=== PATIENT | male | born 1955 | race Caucasian/White ===

== ENCOUNTER 2023-02-19 11:05 | Outpatient (OUT) | payer MEDICARE, SELFPAY ==
--- NOTE | 2023-02-19 11:17 | US_ITS ---
The [address] [address] Patient Name: DHEERAJ STRONG MRN: [id number] date: 1955 Sex: M Assigned Patient Location: US Current Patient Location: Accession/Order Number: [id number] Exam Date: 02/19/2023 11:20 Report Date: 02/20/2023 07:39 At the request of: GAVINO GALDAMEZ Procedure: US venous doppler LE RT EXAM: US venous doppler LE RT HISTORY: Chronic Embolism Of Right Femoral Vein COMPARISON: 05/27/2022. TECHNIQUE: Grayscale, color and Doppler FINDINGS: Region: Right leg Thrombus: Echogenic thrombus identified in the deep mid to distal femoral vein extending from the distal thigh to the popliteal vein. Thrombus identified in the superficial small saphenous vein Flow: Decreased flow corresponding to thrombus Augmentation: Normal proximal augmentation Compressibility: Decreased compressibility corresponding to thrombus US/US venous doppler LE RT IMPRESSION: Chronic nonocclusive thrombus in the deep mid to distal femoral vein and superficial small saphenous vein Electronically authenticated by: JAZMYN BARRY Date: 02/20/2023 07:39
== END 2023-02-19 11:06 | disposition home or self-care (01) ==
LOC: US 11:10
PROVIDERS: PCP Family Medicine; Visit Provider Family Medicine
DX: I82.511 Chronic embolism and thrombosis of right femoral vein (principal)
CPT/HCPCS: 93971

== ENCOUNTER 2024-09-19 09:59 | Emergency (ER) | payer MEDICARE, SELFPAY ==
--- OUTSIDE RECORDS SUMMARY | 2024-09-19 10:17 | XMS_ITS | Patient Health Record ---
Author Organization The [facility] in [place] Address [address] [place] [address] Care Team Providers Care Assistant Gm Of Content & Delivery Name Role Phone None, Unknown or Primary Care Provider Unavailab le Reason For Referral No Information Medications Medication SIG (Take, Route, Fr equency, Duration) Notes Start Date End Date Status Cialis 20 mg 1 tablet DAILY A ctive Mobic 7.5 mg 2 tablet DAILY A ctive Atenolol 25 mg 1 tablet DAILY Active Zetia 10 mg 1 tablet DAILY Ac tive Lasix 40 mg 1 tablet DAILY Ac tive Lisinopril 20 mg 1 tablet DAILY Active Omeprazole 20 mg 1 delayed release capsule DAILY 0 Active Plan Of Treatment No Information Insurance Providers Payer Name Payer Address Payer Phone Subscriber Number Group Number Insured Name Patient Relationship to Insured Coverage Start Date Coverage End Date [facility] [address] [facility] [place] FLOYD [id number] Dean Self - patient is the insured 4 Medical (General) History Surgical History Surgery Date(Month/Year) Surgical / procedural history repair LT shoulder, RT knee surgery History of hernia repair
--- OUTSIDE RECORDS SUMMARY | 2024-09-19 10:17 | XMS_ITS | Encounter Summary ---
Author Organization [facility] Address [address] [place] [address] Care Team Providers Care Supervisor Uranium Processing Name Role Phone Demetrius Zhou MD Primary Care Provider [phone] Demetrius Zhou MD Unavailable Reason for Visit * Reason Comments Med Refill Encounter Details Date Type Department Care Team (Late st Contact Info) Description 04/21/2023 [facility] [address] [place] [address] Demetrius Zhou MD [address] [place] [address] Acute embolism and thrombosis of right femoral vein (HCC); Acute thromboembolism of deep veins of proximal leg (HCC) Social History Tobacco Use Types Packs/Day Years Used Date Smoking Tobacco: Former Cigarettes 975 - 2004 Smokeless Tobacco: Never Alcohol Use Standard Drinks/Week Comments Never 0 (1 standard drink = 0.6 oz pur e alcohol) Humiliation, Afraid, Rape, and Kick questionnair e Answer Date Recorded Within the last year, have y ou been afraid of your partner or ex-partner? No 02/12/2023 Within the last year, have y ou been humiliated or emotionally abused in other ways by your partner or ex-partner? No Within the last year, have y ou been kicked, hit, slapped, or otherwise physically hurt by your partner or ex-partner? No 02/12/2023 Within the last year, have y ou been raped or forced to have any kind of sexual activity by your partner or ex-partner? No 02/12/2023 Social Connection and Isolat ion Panel [NHANES] Answer Date Recorded In a typical week, how many times do you talk on the phone with family, friends, or neighbors? More than three times a week 02/12/2023 How often do you get togethe r with friends or relatives? Twice a week 02/12/2023 Attends Bahai Services Not on file 02/12 Do you belong to any clubs o r organizations such as nondenominational groups, unions, fraternal or athletic groups, or school groups? Yes 02/12/2023 How often do you attend meet ings of the clubs or organizations you belong to? More than 4 times per year 02/12/2023 Are you , , di vorced, , never , or living with a partner? 02/12/2023 AUDIT-C Answer Date Recorded Q1: How often do you have a drink containing alcohol? Never 02/12/2023 Q2: How many drinks containi ng alcohol do you have on a typical day when you are drinking? Patient does not drink Q3: How often do you have si x or more drinks on one occasion? Never 02/12/2023 Overall Financial Resource Strain (CARDIA) Answe r Date Recorded How hard is it for you to pa y for the very basics like food, housing, medical care, and heating? Not very hard 02/12/2023 [facility] - Occupational Stress Questionnaire Answer Date Recorded Do you feel stress - tense, restless, nervous, or anxious, or unable to sleep at night because your mind is troubled all the time - these days? Not at all 02/12/2023 Exercise Vital Sign Answer Date Recorde d On average, how many days pe r week do you engage in moderate to strenuous exercise (like a brisk walk)? 7 days 02/12/2023 On average, how many minutes do you engage in exercise at this level? 30 min 02/12/2023 Hunger Vital Sign Answer Date Recorded Within the past 12 months, y ou worried that your food would run out before you got the money to buy more. Never true 02/12/19 24 Within the past 12 months, t he food you bought just didn't last and you didn't have money to get more. Never true 02/12/2023 PRAPARE - Transportation Answer Date Re corded In the past 12 months, has l ack of transportation kept you from medical appointments or from getting medications? No 09/2023 In the past 12 months, has l ack of transportation kept you from meetings, work, or from getting things needed for daily living? No 02/12/2023 Housing Stability Vital Sign Answer Elvin e Recorded In the last 12 months, was t here a time when you were not able to pay the mortgage or rent on time? No 02/12/2023 Number of Places Lived in the Last Year Not on f ile 02/12/2023 In the last 12 months, was t here a time when you did not have a steady place to sleep or slept in a half-way (including now)? No 02/12/2023 Sex and Gender Information Value Date Recorded Sex Assigned at Not on file Legal Sex Male 11:34 PM EDT Gender Identity Not on file Sexual Orientation Not on file documented as of this encounter Plan of Treatment Upcoming Encounters Date Type Department Care Team (Late st Contact Info) Description 10/20/2024 1:00 PM EDT Office Visit [facility] [address] [place] [address] Demetrius Zhou MD [address] [place] [address] 10/21/2025 1:30 PM EDT Office Visit [facility] [place] [facility] [address] [place] [address] Jr. Mahad Niño DO [address] [place], [place] [phone] documented as of this encounter Visit Diagnoses Diagnosis Acute embolism and thrombosis of right femoral vein (HCC) Acute thromboembolism of deep veins of proximal leg (HCC) Acute venous embolism and thrombosis of deep vessels of proximal lower extremity documented in this encounter Care Teams Supervisor Uranium Processing Relationship Specialty Start Date End Date Demetrius Zhou MD [address] [place] [phone] PCP - General Family Medicine 04/25/23 Demetrius Zhou MD [address] [place] [address] PCP - Dwayne KHAN 10/07/23 documented as of this encounter
--- OUTSIDE RECORDS SUMMARY | 2024-09-19 10:17 | XMS_ITS | Encounter Summary ---
Author Organization [facility] Address [address] [place] [address] Care Team Providers Care Burrer Operator Name Role Phone Demetrius Zhou MD Primary Care Provider [phone] Demetrius Zhou MD Unavailable Reason for Visit * Reason Comments Med Refill Encounter Details Date Type Department Care Team (Late st Contact Info) Description 08/01/2022 Refill [facility] [address] [place] [phone] Harley Reich PA [address] [place] [phone] Pre-op examination; Status post total knee replacement, right Social History Tobacco Use Types Packs/Day Years Used Date Smoking Tobacco: Former Cigarettes Smokeless Tobacco: Never Alcohol Use Standard Drinks/Week Comments Never 0 (1 standard drink = 0.6 oz pur e alcohol) Sex and Gender Information Value Date Recorded Sex Assigned at Not on file Legal Sex Male 11:34 PM EDT Gender Identity Not on file Sexual Orientation Not on file documented as of this encounter Miscellaneous Notes * Telephone Encounter - MYKE Rendon - 08/07/2022 1:51 PM EDT Pharmacy only could fill script for 3 days ( oarrs reviewed. Pt taking 1 tab every 8 hour now.. refill sent to pharmacy. * Telephone Encounter - MYKE Rendon - 08/04/2022 1:16 PM EDT Pt called Jessica- therapist. [facility]ed [facility].. rx sent, please take least effective dose for pain. documented in this encounter Plan of Treatment Upcoming Encounters Date Type Department Care Team (Late st Contact Info) Description 10/20/2024 1:00 PM EDT Office Visit [facility] [address] [place] [phone] Demetrius Zhou MD [address] [place] [address] 10/21/2025 1:30 PM EDT Office Visit [facility] [place] [facility] [address] [place] [phone] Jr. Mahad Niño, DO [address] [place] [address] documented as of this encounter Visit Diagnoses Diagnosis Pre-op examination Status post total knee replacement, right documented in this encounter Care Teams Burrer Operator Relationship Specialty Start Date End Date Demetrius Zhou MD [address] [place] [address] PCP - General Family Medicine 04/25/23 Demetrius Zhou MD [address] [place] [address] PCP - Dwayne KHAN 10/07/23 documented as of this encounter
--- OUTSIDE RECORDS SUMMARY | 2024-09-19 10:17 | XMS_ITS | Clinical Summary ---
Author Organization [facility] Address [address] [facility] [address] Care Team Providers Care Gear Inspector Name Role Phone Demetrius Zhou MD Primary Care Provider [phone] Demetrius Zhou MD Unavailable Allergies No known active allergies Medications Fluzone High-Dose 0.5 ML suspension prefilled syringe 4 Active furosemide (Lasix) 40 MG tabletIndication s:Essential hypertension, benign TAKE 1 TABLET BY MOUTH EVERY DAY 90 tablet 3 5 Active omeprazole (PriLOSEC) [address] capsuleIndicatio ns:Gastroesophag eal reflux disease without esophagitis TAKE 1 CAPSULE BY MOUTH EVERY DAY 90 capsule 3 5 Active lisinopril 20 MG tabletIndication s:Essential hypertension, benign TAKE 1 TABLET BY MOUTH EVERY DAY 90 tablet 3 5 Active pravastatin (Pravachol) 40 MG tabletIndication s:Dyslipidemia TAKE 1 TABLET BY MOUTH EVERYDAY AT BEDTIME 90 tablet 3 5 Active atenolol (Tenormin) 25 MG tabletIndication s:Essential hypertension, benign TAKE 1 TABLET BY MOUTH EVERY DAY 90 tablet 3 5 Active cholecalciferol (Vitamin D-3) 25 MCG (1000 UT) capsuleIndicatio ns:Vitamin D deficiency TAKE 1 CAPSULE BY MOUTH EVERY DAY 90 capsule 2 5 Active Active Problems Problem Noted Date Diagnosed Date CKD stage 3a, GFR 45-59 ml/min 02/07/2024 Assessment & Plan (02/07/2024 2:16 PM EST): Renal function stable. Encounter for long-term (current) use of medicat ions 08/06/2023 Screening PSA (prostate specific antigen) 2023 Essential hypertension, benign 02/13/2023 Assessment & Plan (07/14/2024 3:11 PM EDT): BP controlled and monitor PRN. Assessment & Plan (02/07/2024 2:14 PM EST): BP controlled and monitor PRN. Assessment & Plan (08/06/2023 2:13 PM EDT): BP controlled and monitor PRN. Assessment & Plan (02/13/2023 4:45 PM EST): BP controlled and monitor PRN. Cerebrovascular disease, unspecified 02/13/2023 Chronic embolism and thrombosis of right femoral vein 02/13/2023 Assessment & Plan (02/07/2024 2:14 PM EST): Stopped eliquis due to cost. Prior provoked DVT but chronic clot persists. Discussed options including vascular referral. Wants to stay off anticoagulation and will monitor. Assessment & Plan (08/06/2023 2:14 PM EDT): Doing well with Eliquis. US showed chronic DVT with blood flow. If wants to try without medication recommend see vascular to discuss. Assessment & Plan (02/13/2023 4:45 PM EST): DVT few years ago and likely related to vaccine. Repeat US and if negative can stop Eliquis. Dyslipidemia 02/13/2023 Assessment & Plan (02/07/2024 2:16 PM EST): Continue pravachol Gastroesophageal reflux disease 02/13/2023 Assessment & Plan (08/06/2023 2:13 PM EDT): Symptoms controlled with medication and continue. Assessment & Plan (02/13/2023 4:45 PM EST): Symptoms controlled with medication and continue. Osteoarthritis of thumb, left 02/13/2023 Type 2 diabetes mellitus with hyperglycemia 10/2023 Assessment & Plan (07/14/2024 3:11 PM EDT): Not checking BS and due for A1C. Stick to ADA diet and limit carbs. Assessment & Plan (02/07/2024 2:15 PM EST): Not checking BS and due for A1C. Stick to ADA diet and limit carbs. Vitamin D deficiency 02/13/2023 Bilateral leg edema 02/13/2023 Assessment & Plan (07/14/2024 3:11 PM EDT): Edema stable and continue lasix PRN. Elevate legs throughout the day. Assessment & Plan (02/07/2024 2:13 PM EST): Edema stable and continue lasix PRN. Elevate legs throughout the day. Assessment & Plan (08/06/2023 2:13 PM EDT): Edema stable and continue lasix PRN. Elevate legs throughout the day. Assessment & Plan (02/13/2023 4:44 PM EST): Edema stable and continue lasix PRN. Elevate legs throughout the day. Primary osteoarthritis of right knee 07/20/2022 Assessment & Plan (07/14/2024 3:11 PM EDT): Doing well after surgery and follow up with ortho. Continue ROM exercises. Assessment & Plan (02/07/2024 2:15 PM EST): Doing well after surgery and follow up with ortho. Continue ROM exercises. Assessment & Plan (08/06/2023 2:13 PM EDT): Doing well after surgery and follow up with ortho. Continue ROM exercises. Assessment & Plan (02/13/2023 4:46 PM EST): Doing well after surgery and follow up with ortho. Continue ROM exercises. Status post total right knee replacement 023 Difficulty walking 07/20/2022 Primary osteoarthritis 07/10/2022 Resolved Problems Problem Noted Date Diagnosed Date Resolved Date Pre-op examination 08/22/2022 Acute pain of right knee 07/20/202202/2023 Encounters Date Type Department Care Team Description 08/16/[facility]24 [facility] [address] [place] [address] Demetrius Zhou MD Vitamin D deficiency 07/16/2024 Results Follow-Up [facility] [address] [place] [address] Demetrius Zhou MD Hemoglobin A1c 07/14/2024 2:30 PM EDT Office Visit [facility] [address] [place] [address] Demetrius Zhou MD Type 2 diabetes mellitus with hyperglycemia, without long-term current use of insulin (HCC) (Primary Dx); Essential hypertension, benign ; Primary osteoarthritis of right knee; Bilateral leg edema 07/14/2024 Abstract [facility] [address] [place] [address] Demetrius Zhou MD 07/14/2024 Bamboo flowsheet [facility] [address] [place] [address] Demetrius Zhou MD 07/07/2024 Travel from Last 3 Months Immunizations Immunization Administration Dates Next Due Influenza, High Dose Seasonal, Preservative Free 04/18/2019 Influenza, High-dose Seasona l, Quadrivalent, Preservative Free 10/17/2021,12/19/2019 Influenza, Seasonal, Quadrivalent, Adjuvanted Influenza, seasonal, injectable, preservative fr ee 01/11/2015 Family History Medical History Relation Name Comments Heart disease Father Hypertension Father Hypertension Mother Stroke Mother Relation Name Status Comments Father Mother Social History Tobacco Use Types Packs/Day Years Used Date Smoking Tobacco: Former Cigarettes 30 1 975 - 2005 Smokeless Tobacco: Never Tobacco Cessation:Counseling Given: Not Answered Alcohol Use Standard Drinks/Week Comments Never 0 (1 standard drink = 0.6 oz pur e alcohol) B1300 Health Literacy Answer Date Recor ded How often do you need to hav e someone help you when you read instructions, pamphlets, or other written material from your doctor or pharmacy? Never 07/07/2024 Humiliation, Afraid, Rape, and Kick questionnair e Answer Date Recorded Within the last year, have y ou been afraid of your partner or ex-partner? No 07/07/2024 Within the last year, have y ou been humiliated or emotionally abused in other ways by your partner or ex-partner? No Within the last year, have y ou been kicked, hit, slapped, or otherwise physically hurt by your partner or ex-partner? No 07/07/2024 Within the last year, have y ou been raped or forced to have any kind of sexual activity by your partner or ex-partner? No 07/07/2024 Social Connection and Isolat ion Panel [NHANES] Answer Date Recorded In a typical week, how many times do you talk on the phone with family, friends, or neighbors? Three times a week 07/07/2024 How often do you get togethe r with friends or relatives? Once a week 07/07/2024 How often do you attend chur or zoroastrianism services? Never 07/07/2024 Do you belong to any clubs o r organizations such as advent groups, unions, fraternal or athletic groups, or school groups? Yes 07/07/2024 How often do you attend meet ings of the clubs or organizations you belong to? More than 4 times per year 07/07/2024 Are you , , di vorced, , never , or living with a partner? 07/07/2024 AUDIT-C Answer Date Recorded Q1: How often do you have a drink containing alcohol? Never 07/07/2024 Q2: How many drinks containi ng alcohol do you have on a typical day when you are drinking? Patient does not drink Q3: How often do you have si x or more drinks on one occasion? Never 07/07/2024 Overall Financial Resource Strain (CARDIA) Answe r Date Recorded How hard is it for you to pa y for the very basics like food, housing, medical care, and heating? Not very hard 07/07/2024 [facility] Occupat ional Health - Occupational Stress Questionnaire Answer Date Recorded Do you feel stress - tense, restless, nervous, or anxious, or unable to sleep at night because your mind is troubled all the time - these days? Not at all 07/07/2024 Exercise Vital Sign Answer Date Recorde d On average, how many days pe r week do you engage in moderate to strenuous exercise (like a brisk walk)? 5 days 07/07/2024 On average, how many minutes do you engage in exercise at this level? 30 min 07/07/2024 Hunger Vital Sign Answer Date Recorded Within the past 12 months, y ou worried that your food would run out before you got the money to buy more. Never true 07/08/19 25 Within the past 12 months, t he food you bought just didn't last and you didn't have money to get more. Never true 07/07/2024 PRAPARE - Transportation Answer Date Re corded In the past 12 months, has l ack of transportation kept you from medical appointments or from getting medications? No 03/2024 In the past 12 months, has l ack of transportation kept you from meetings, work, or from getting things needed for daily living? No 07/07/2024 Housing Stability Vital Sign Answer Elvin e [...] place to sleep or slept in a custodial (including now)? No 02/12/2023 Housing Stability Vital Sign Answer Elvin e Recorded In the last 12 months, was t here a time when you were not able to pay the mortgage or rent on time? No 07/07/2024 Number of Times Moved in the Last Year Not on fi le 07/07/2024 At any time in the past 12 m onths, were you homeless or living in a custodial (including now)? No 07/07/2024 Sex and Gender Information Value Date Recorded Sex Assigned at Not on file Legal Sex Male 11:34 PM EDT Gender Identity Not on file Sexual Orientation Not on file Last Filed Vital Signs Vital Sign Reading Time Taken Comments Blood Pressure 152/58 07/14/2024 2:45 PM EDT Pulse 63 07/14/2024 2:45 PM EDT Temperature 36.6 C (97.8 F) 07/14/2024 2:45 PM EDT Respiratory Rate 22 07/14/2024 2:45 PM EDT Oxygen Saturation 96% 07/14/2024 2:45 PM EDT Inhaled Oxygen Concentration - - Weight 76.7 kg (169 lb) 07/14/2024 2:45 PM EDT Height 167.6 cm (5' 6 ) 07/14/2024 2:45 PM EDT Body Mass Index 27.28 07/14/2024 2:45 PM EDT Plan of Treatment Upcoming Encounters Date Type Department Care Team (Late st Contact Info) Description 10/20/2024 1:00 PM EDT Office Visit [facility] [address] [place] [phone] Demetrius Zhou MD [address] [place] [address] 10/21/2025 1:30 PM EDT [facility] [address] [place] [address] Jr. Mahad Niño, DO [address] [place] [address] Health Maintenance Due Date Last Done Comments CT Colonography 1955 Colonoscopy 1955 Colorectal Cancer Screening 1955 FIT-DNA 1955 FIT 1955 FOBT 1955 Sigmoidoscopy 1955 Diabetes: Retinopathy Screening 02/21/1964 Pneumococcal Vaccine: 65+ Ye ars (1 of 2 - PCV) 1973 Medicare Annual Wellness (AWV) 08/11/2022 08/11/2021 Influenza Vaccine (#1) 2024 4, 11/28/2022, 10/17/2021, Additional history exists Diabetes: Hemoglobin A1C 01/15/2025 025, 07/16/2024, 02/12/2024, Additional history exists Diabetes: Urine Protein Screening 02/11/2025 02/12/2024, 02/12/2024, 02/12/2024 Procedures Procedure Name Priority Date/Time Associated Diagnosis Comments HEMOGLOBIN A1C Routine 07/16/2024 9:50 AM EDT MICROALBUMIN / CREATININE URINE RATIO Routine 02/12/2024 10:26 AM EST from Last 3 Months or Most Recently Relevant to Health Maintenance Results * (ABNORMAL) Hemoglobin A1c (07/16/2024 9:50 AM EDT) HEMOGLOBIN A1C 6.7(H) 4.4 - 5.6 % [facility] Comment: ADA Guidelines Result HgbA1c Normal : less than 5.7 % Prediabetes : 5.7 % to 6.4 % Diabetes : > 6.4 % Use with caution in patients with abnormal hemoglobin variants as the half-life of red blood cells and in vivo glycation rates are affected. AVERAGE GLUCOSE 146 mg/dL [facility] Comment: PERFORMED AT [facility] [address],[place] [address] 07/16/2024 9:50 AM EDT 07/16/2024 1:12 PM EDT us Demetrius Zhou MD LAB BLOOD ORDERABLES Final Resul t [facility] * (ABNORMAL) Microalbumin / creatinine urine ratio (02/12/2024 10:26 AM EST) MICROALBUMIN, URINE 12.7(H) 0.0 - 1.9 mg/dL [facility] URINE CREAT 270.99 mg/dL [facility] ALB/CREAT RATIO 46.9(H) 0.0 - 30.0 mg/g creat [facility] Comment:PERFORMED AT [facility] [address],[place] [address] 02/12/2024 10:2 6 AM EST 02/12/2024 10:27 AM EST us Demetrius Zhou MD LAB URINE ORDERABLES Final Resul t [facility] from Last 3 Months or Most Recently Relevant to Health Maintenance Insurance [employer] Care Teams Gear Inspector Relationship Specialty Start Date End Date Demetrius Zhou MD [address] [place] [address] PCP - General Family Medicine 04/25/23 Demetrius Zhou MD [address] [place] [address] PCP - Dwayne KHAN 10/07/23
--- OUTSIDE RECORDS SUMMARY | 2024-09-19 10:17 | XMS_ITS | Encounter Summary ---
Author Organization [facility] Address [address] [place] [address] Care Team Providers Care Hr Intern Name Role Phone Demetrius Galdamez MD Primary Care Provider [phone] Demetrius Galdamez MD Unavailable Encounter Details Date Type Department Care Team (Late st Contact Info) Description 2023 Clinisync Result Encounter [facility] External Department Unsolicited Demetrius Galdamez MD [address] [place] [address] Social History Tobacco Use Types Packs/Day Years [...] or relatives? Twice a week 02/12/2023 Attends [employer]oration Services Not on file 02/12 Do you belong to any clubs o r organizations such as anabaptism groups, unions, fraternal or athletic groups, or [...] care, and heating? Not very hard 02/12/2023 [facility] - [...] place to sleep or slept in a group home (including now)? No 02/12/2023 Sex and Gender Information Value Date Recorded Sex Assigned at Not on file Legal Sex Male 11:34 PM EDT Gender Identity Not on file Sexual Orientation Not on file documented as of this encounter Plan of Treatment Upcoming Encounters Date Type Department Care Team (Late st Contact Info) Description 10/20/2024 1:00 PM EDT Office Visit [facility] [address] [place] [address] Demetrius Galdamez MD [address] [place] [address] 10/21/2025 1:30 PM EDT Office Visit [facility] [address] [place] [address] Jr. Mahad Niño, DO [address] [place] [address] documented as of this encounter Procedures Procedure Name Priority Date/Time Associated Diagnosis Comments VASC US LOWER EXTREMITY VENOUS DUPLEX RIGHT 2023 7:39 AM EST documented in this encounter Results * Vascular US lower extremity venous duplex right (2023 7:39 AM EST) Anatomical Region Laterality Modality Lower Extremities Ultrasound 2023 7:39 AM EST Narrative 2023 7:41 AM EST The [address] [address] Ultrasound Report Signed Patient: DHEERAJ STRONG MR#: [id number] : 1955 Acct:[id number] Age/Sex: 67 / M ADM Date: 02/19/23 Loc: US Attending Dr: Demetrius Galdamez M.D. Ordering Physician: Demetrius Galdamez M.D. Date of Service: 02/19/23 Procedure(s): US venous doppler LE RT Accession Number(s): [id number] cc: Demetrius Galdamez M.D. The [place] [address] Patient Name: DHEERAJ STRONG MRN: [id number] date: 1955 Sex: M Assigned Patient Location: US Current Patient Location: Accession/Order Number: [id number] Exam Date: 02/19/2023 11:20 Report Date: 2023 07:39 At the request of: DEMETRIUS GALDAMEZ Procedure: US venous doppler LE RT EXAM: US venous doppler LE RT HISTORY: Chronic Embolism Of Right Femoral Vein COMPARISON: 05/27/2022. TECHNIQUE: Grayscale, color and Doppler FINDINGS: Region: Right leg Thrombus: Echogenic thrombus identified in the deep mid to distal femoral vein extending from the distal thigh to the popliteal vein. 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 Signed By: 02/20/23 0741 DD/ 0739 TD/TT: Dining Room Supervisor: Procedure Note Radiology, Radiologist, MD - 2023 The [place] [id number] Ultrasound Report Signed Patient: DHEERAJ STRONG RMR#: [id number] : 5Acct:[id number] Age/Sex: 67 / MADM Date: 02/19/23 Loc: US Attending Dr: Demetrius Galdamez M.D. Ordering Physician: Demetrius Galdamez M.D. Date of Service: 02/19/23 Procedure(s): US venous doppler LE RT Accession Number(s): [id number] cc: Demetrius Galdamez M.D. [place] [address] Patient Name: DHEERAJ STRONG MRN: [id number] date: 1955 Sex: M Assigned Patient Location: US Current Patient Location: Accession/Order Number: [id number] Exam Date: 02/19/2023 11:20 Report Date: 2023 07:39 At the request of: DEMETRIUS GALDAMEZ Procedure: US venous doppler LE RT EXAM: US venous doppler LE RT HISTORY: Chronic Embolism Of Right Femoral Vein COMPARISON: 05/27/2022. TECHNIQUE: Grayscale, color and Doppler FINDINGS: Region: Right leg Thrombus: Echogenic thrombus identified in the deep mid to distal femoralvein extending from the distal thigh to the popliteal vein. 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 Signed By:02/20/23 0741 DD/ 0739 TD/TT: Dining Room Supervisor: Demetrius Galdamez MD IMG US PROCEDURES Final Result documented in this encounter Visit Diagnoses Not on filedocumented in this encounter Care Teams Hr Intern Relationship Specialty Start Date End Date Demetrius aGldamez MD [address] [place] [address] PCP - General Family Medicine 04/25/23 Demetrius Galdamez MD [address] [place] [address] PCP - Dwayne KHAN 10/07/23 documented as of this encounter
--- OUTSIDE RECORDS SUMMARY | 2024-09-19 10:17 | XMS_ITS | Clinical Summary ---
Author Organization [facility] Address [id number] [place] [address] Care Team Providers Care Contact Center Engineer Name Role Phone Demetrius Zhou MD Primary Care Provider [phone] Allergies No known active allergies Medications atenolol (TENORMIN) 25 mg tablet Take 1 tablet (25 mg total) by mouth in the morning. Active lisinopril (PRINIVIL,ZESTR IL) 10 mg tablet Take 1 tablet (10 mg total) by mouth in the morning. Active furosemide (LASIX) 40 mg tablet Take 1 tablet (40 mg total) by mouth daily. Active omeprazole (PriLOSEC) 20 mg capsule Take 1 capsule (20 mg total) by mouth in the morning. Active cholecalciferol , vitamin D3, 5,000 units tablet Take 1 tablet (5,000 Units total) by mouth in the morning. Active apixaban (ELIQUIS) 2.5 mg tablet Take 1 tablet (2.5 mg total) by mouth Every 12 (twelve) hours. 07/19/2022 Active Active Problems Problem Noted Date Diagnosed Date Acute pain of right knee 07/18/2022 Encounters Date Type Department Care Team Description 07/16/2024 Travel from Last 3 Months Family History Medical History Relation Name Comments Heart disease Father Stroke Mother Relation Name Status Comments Father Mother Social History Tobacco Use Types Packs/Day Years Used Date Smoking Tobacco: Former Tobacco Cessation:Counseling Given: Not Answered Alcohol Use Standard Drinks/Week Comments Not Currently 0 (1 standard drink = 0.6 oz pur e alcohol) Childcare Answer Date Recorded Childcare Unknown 07/17/2018 Employment Answer Date Recorded Employment Unknown 07/17/2018 Purpose - Life Answer Date Recorded Purpose and direction in life Unknown Sex and Gender Information Value Date Recorded Sex Assigned at Not on file Legal Sex Male 11:24 AM EDT Gender Identity Not on file Sexual Orientation Not on file Last Filed Vital Signs Vital Sign Reading Time Taken Comments Blood Pressure 125/82 07/19/2022 7:25 AM EDT Pulse 70 07/19/2022 7:25 AM EDT Temperature 36.6 C (97.8 F) 07/19/2022 7:25 AM EDT Respiratory Rate 16 07/19/2022 7:25 AM EDT Oxygen Saturation 96% 07/19/2022 7:25 AM EDT Inhaled Oxygen Concentration - - Weight 78.8 kg (173 lb 12.8 oz) 07/19/2022 5:25 AM EDT Height 167.6 cm (5' 6 ) 07/18/2022 6:38 AM EDT Body Mass Index 28.05 07/18/2022 6:38 AM EDT Plan of Treatment Health Maintenance Due Date Last Done Comments Diabetic Ophthalmology Exam 1955 Depression Screening 1966 Tobacco Screening 1966 Diabetic Foot Exam 02/21/1972 DTaP,Tdap and Td Vaccines (1 - Tdap) 1973 Zoster (Shingles) Vaccine (1 of 2) 02/21/2004 Fall Risk Screening 2019 Adult BMI Screening 07/20/2023 07/19/2022 COVID-19 Vaccine (4 - 2023-2 5 season) 2023 11/12/2020, 05/04/2020, 04/12/2020 Influenza Vaccine 10/06/2024 11/05/2023, , 10/17/2021, Additional history exists Statin Use: Diabetic 05/22/2025 05/22/2024 Goals Goal Patient Goal Type Associated Problems Recent Progress Patient-Stated? Author Home General Yes Edilma Delgado LSW Note: Evaluation of progress towards goal: Home with family support and [facility] 360 Medical Devices Implanted Type Area Winding Machine Operator Device Identifier Shelf Expiration Date Model / Serial / Lot Cement Bn Bio 40gm Rpl [id number] - Sna - [id number] Implanted:Qt y: 2 on 07/18/2022 at [facility] Cement Right: Knee [employer] 10/28/2022 [id number] / NA / [id number] Insert Artc 5-6 E-F 10mm Kn Fx Brng Prlng Nxgn Lpsflx Strl Rpl [id number] + [id number] - Sna - [id number] Implanted:Qt y: 1 on 07/18/2022 at [facility] Orthopedic Implant Right: Knee [employer] 05/08/202757-6892-138-1 0 / NA / [id number] Component Fem E Kn Rt Cmnt Nxgn Lpsflx Opt Zml Prlng Strl Rpl [id number] + [id number] - Sna - [id number] Implanted:Qt y: 1 on 07/18/2022 at [facility] Orthopedic Implant Right: Knee [employer] 11/21/203153-6918-656-5 2 / NA / [id number] Component Ptlr 35mm Persona Alply Kn Strl Lf - Sna - [id number] Implanted:Qt y: 1 on 07/18/2022 at [facility] Orthopedic Implant Right: Knee [employer] 12/21/2026 [id number] / NA / [id number] Plate Tib 50t36us Nxgn Kn Cmnt Mdlr Stm Prect 6 Tiv Pmma Rpl [id number] + [id number] - Sna - [id number] Implanted:Qt y: 1 on 07/18/2022 at [facility] Plate Right: Knee [employer] 05/04/2032 [id number] 2 / NA / [id number] Explanted Type Area Winding Machine Operator Device Identifier Shelf Expiration Date Model / Serial / Lot Screw Gd 48mm Qd-Spr Hex Hd Mis Strl - Sna - [id number] Explanted:Qty: 2 on 07/18/2022 at [facility] Screw Right: Knee [employer] 01/22/203203-5221-889-48 / NA / [id number] Screw Bn 35mm 6.5mm St Hip Actb Trlg Strl Rpl [id number]+32 - Sna - [id number] Explanted:Qty: 1 on [facility]22 [facility] Screw Right: Knee [employer] 02/12/2032 [id number] / NA / [id number] Screw Bn 35mm 6.5mm St Hip Actb Trlg Strl Rpl [id number] 14980+32 - Sna - [id number] Explanted:Qty: 1 on 07/18/2022 at [facility] Screw Right: Knee [employer] 04/27/2032 [id number] / NA / [id number] Procedures Procedure Name Priority Date/Time Associated Diagnosis Comments HEMOGLOBIN A1C Routine 07/16/2024 9:50 AM EDT Type 2 diabetes mellitus with hyperglycemia ([facility]) from Last 3 Months Results * (ABNORMAL) Hemoglobin A1c (07/16/2024 9:50 AM EDT) HEMOGLOBIN A1C 6.7(H) 4.4 - 5.6 % 07/16/2024 2:08 PM EDT [facility] Comment: ADA Guidelines Result HgbA1c Normal : less than 5.7 % Prediabetes : 5.7 % to 6.4 % Diabetes : > 6.4 % Use with caution in patients with abnormal hemoglobin variants as the half-life of red blood cells and in vivo glycation rates are affected. EST. AVERAGE GLUCOSE 146 mg/dL 07/16/2024 2:08 PM EDT [facility] Blood Venous blood / Unknown Venipuncture / Unknown 07/16/2024 9:50 AM EDT 07/16/2024 9:50 AM EDT us Demetrius Zhou MD LAB BLOOD ORDERABLES Final Resul t [facility] [address] [place] [address], [place] [phone] from Last 3 Months Insurance [facility] MEDIC[facility] Advance Directives * Full Code (Latest Code Status on File) Date Activated Date Inactivated Comments 07/18/2022 7:03 AM 07/19/2022 2:51 PM Care Teams Contact Center Engineer Relationship Specialty Start Date End Date Demetrius Zhou MD PCP - General 07/06/16
--- OUTSIDE RECORDS SUMMARY | 2024-09-19 10:17 | XMS_ITS | Encounter Summary ---
Author Organization [facility] Address [address] [place] [address] Care Team Providers Care Animal Care Technician Name Role Phone Demetrius Zhou MD Primary Care Provider [phone] Demetrius Zhou MD Unavailable Encounter Details Date Type Department Care Team (Late Contact Info) Description 08/29/2022 Abstract [facility] [address] [facility] [address] [place] [address] Valentín Ontiveros, PT [address] [facility] [address] [place] [address] Social History Tobacco Use Types Packs/Day Years Used Date Smoking Tobacco: Former Cigarettes Smokeless Tobacco: Never Alcohol Use Standard Drinks/Week Comments Never 0 (1 standard drink = 0.6 oz pur e alcohol) Sex and Gender Information Value Date Recorded Sex Assigned at Not on file Legal Sex Male 11:34 PM EDT Gender Identity Not on file Sexual Orientation Not on file COVID-19 Exposure Response Date Recorded In the last 10 days, have yo u been in contact with someone who was confirmed or suspected to have Coronavirus/COVID-19? No / Unsure 08/29/2022 4:02 PM EDT documented as of this encounter Plan of Treatment Upcoming Encounters Date Type Department Care Team (Late Contact Info) Description 10/20/2024 1:00 PM EDT Office Visit [facility] [address] [place] [address] Demetrius Zhou MD [address] [place] [address] 10/21/2025 1:30 PM EDT Office Visit [facility] [address] [place] [address] Jr. Mahad Niño C, DO [address] [place], [place] [address] documented as of this encounter Visit Diagnoses Not on filedocumented in this encounter Care Teams Animal Care Technician Relationship Specialty Start Date End Date Demetrius Zhou MD [address] [place] [address] PCP - General Family Medicine 04/25/23 Demetrius Zhou MD [address] [place] [address] PCP - Dwayne KHAN 10/07/23 documented as of this encounter
--- OUTSIDE RECORDS SUMMARY | 2024-09-19 10:17 | XMS_ITS | Encounter Summary ---
Author Organization [facility] Address [address] [facility] [place] [address] Care Team Providers Care Senior Tax Specialist Name Role Phone Demetrius Zhou MD Primary Care Provider [phone] Demetrius Zhou MD Unavailable Encounter Details Date Type Department Care Team (Late st Contact Info) Description 02/21/2023 [facility] [address] [place] [address] Demetrius Zhou MD [address] [place] [address] Social History Tobacco Use Types Packs/Day Years Used Date Smoking Tobacco: Former Cigarettes 30 1 975 - 2004 Smokeless Tobacco: Never Alcohol [...] or relatives? Twice a week 02/12/2023 Attends Denominational Services Not on file 02/12 Do you belong to any clubs o r organizations such as latter-day groups, unions, fraternal or athletic groups, or [...] care, and heating? Not very hard 02/12/2023 [facility] - Occupational Stress [...] place to sleep or slept in a longterm (including now)? No 02/12/2023 Sex and Gender [...] Office Visit [facility] [address] [place] [address] Demetrius Zhou MD [address] [place] [address] 10/21/2025 1:30 PM EDT Office Visit [facility] [address] [place] [address] Jr. Mahad Niño, DO [address] [place] [address] documented as of this encounter Procedures Procedure Name Priority Date/Time Associated Diagnosis Comments ULTRASOUND : DOPPLER : VEINS LEG RIGHT Routine 02/21/2023 8:01 AM EST documented in this encounter Results * ULTRASOUND : DOPPLER : VEINS LEG RIGHT (02/21/2023 8:01 AM EST) Anatomical Region Laterality Modality Radiographic Anna ging Demetrius Zhou MD IMG XR PROCEDURES Final Result documented in this encounter Visit Diagnoses Not on filedocumented in this encounter Care Teams Senior Tax Specialist Relationship Specialty Start Date End Date Demetrius Zhou MD [address] [place] [address] PCP - General Family Medicine 04/25/23 Demetrius Zhou MD [address] [place] [address] PCP - Dwayne KHAN 10/07/23 documented as of this encounter
--- OUTSIDE RECORDS SUMMARY | 2024-09-19 10:17 | XMS_ITS | Encounter Summary ---
Author Organization [facility] Address [address] [facility] [place] [address] Care Team Providers Care Care Technician Name Role Phone Demetrius Zhou MD Primary Care Provider [phone] Demetrius Zhou MD Unavailable Encounter Details Date Type Department Care Team (Late Contact Info) Description 07/29/2022 Abstract [facility] [address] [place] [address] Harley Reich, PA [address] [place] [address] Social History Tobacco Use Types Packs/Day Years [...] Office Visit [facility] [address] [place] [address] Demetrius Zhou MD [address] [place] [address] 10/21/2025 1:30 PM EDT Office Visit [facility] [place] [facility] [address] [place] [address] Jr. Mahad Niño, DO [address] [place] [address] documented as of this encounter Visit Diagnoses Not on filedocumented in this encounter Care Teams Care Technician Relationship Specialty Start Date End Date Demetrius Zhou MD [address] [place] [address] PCP - General Family Medicine 04/25/23 Demetrius Zhou MD [address] [place] [address] PCP - Dwayne KAHN 10/07/23 documented as of this encounter
--- OUTSIDE RECORDS SUMMARY | 2024-09-19 10:17 | XMS_ITS | Encounter Summary ---
Author Organization [facility] Address [address] [facility] [place] [address] Care Team Providers Care Paper Inspector Name Role Phone Demetrius Zhou MD Primary Care Provider [phone] Demetrius Zhou MD Unavailable Encounter Details Date Type Department Care Team (Late st Contact Info) Description 08/10/2023 [facility] [address] [place] [address] Demetrius Zhou MD [address] [place] [address] Social History Tobacco Use Types Packs/Day Years [...] or relatives? Twice a week 02/12/2023 Attends Orthodoxy Services Not on file 02/12 Do you belong to any clubs o r organizations such as mormon groups, unions, fraternal or athletic groups, or [...] care, and heating? Not very hard 02/12/2023 [facility] - Occupational Stress [...] place to sleep or slept in a residential (including now)? No 02/12/2023 Sex and Gender Information Value Date Recorded Sex Assigned at Not on file Legal Sex Male 11:34 PM EDT Gender Identity Not on file Sexual Orientation Not on file documented as of this encounter Plan of Treatment Upcoming Encounters Date Type Department Care Team (Late st Contact Info) Description 10/20/2024 1:00 PM EDT Office Visit [facility] [address] [place] [address] Demetrius Zhou MD [address] [place] [address] 10/21/2025 1:30 PM EDT Office Visit [facility] [address] [place] [address] Jr. Mahad Niño, DO [address] [place] [address] documented as of this encounter Visit Diagnoses Not on filedocumented in this encounter Care Teams Paper Inspector Relationship Specialty Start Date End Date Demetrius Zhou MD [address] [place] [address] PCP - General Family Medicine 04/25/23 Demetrius Zhou MD [address] [place] [address] PCP - Dwayne KHAN 10/07/23 documented as of this encounter
--- OUTSIDE RECORDS SUMMARY | 2024-09-19 10:17 | XMS_ITS | Encounter Summary ---
Author Organization [facility] Address [address] [place] [address] Care Team Providers Care Professional Development Instructor Name Role Phone Demetrius Zhou MD Primary Care Provider [phone] Demetrius Zhou MD Unavailable Encounter Details Date Type Department Care Team (Late st Contact Info) Description 06/27/2022 External Result Encounter [facility] [address] [facility] [address] [place] [address] Jr. Mahad Niño DO [address] [facility] [address] [place] [address] Social History Tobacco Use Types Packs/Day Years Used Date Smoking Tobacco: Never Assessed Sex and Gender Information Value Date Recorded Sex Assigned at Not on file Legal Sex Male 11:34 PM EDT Gender Identity Not on file Sexual Orientation Not on file documented as of this encounter Plan of Treatment Upcoming Encounters Date Type Department Care Team (Late st Contact Info) Description 10/20/2024 1:00 PM EDT Office Visit [facility] [address] [place] [address] Demetrius Zhou MD [address] [place] [address] 10/21/2025 1:30 PM EDT Office Visit [facility] [address] [place] [address] Jr. Mahad Niño, DO [address] [place] [address] documented as of this encounter Procedures Procedure Name Priority Date/Time Associated Diagnosis Comments CBC WITH AUTO DIFFERENTIAL Routine 09/26/2022 1:32 PM EDT REPEATED ABO/RH ([facility]) STAT 07/18/2022 6:45 AM EDT TYPE AND CROSSMATCH ([facility]) Routine 07/13/2022 8:39 AM EDT XR LOWER EXTREMITY LEG LENGTH EVALUATION 06/27/2022 8:00 AM EDT CBC WITH AUTO DIFFERENTIAL Routine 06/26/2022 10:31 AM EDT URINALYSIS, MANUAL ONLY Routine 06/26/2022 10:31 AM EDT CULTURE, URINE, ROUTINE Routine 06/26/2022 10:31 AM EDT BASIC METABOLIC PANEL Routine 06/26/2022 10:31 AM EDT documented in this encounter Results * CBC auto differential (09/26/2022 1:32 PM EDT) Pathologist [facility] WHITE BLOOD CELL COUNT, WBC 7.5 4.0 - 11.0 X10E9/L [facility] RED BLOOD CELL COUNT, RBC 5.03 4.10 - 5.70 X10E12/L [facility] HEMOGLOBIN 14.5 13.0 - 17.0 g/dL [facility] HEMATOCRIT 41.9 39 - 49 % [facility] MEAN CELL VOLUME, MCV 83 80 - 100 fL [facility] MEAN CELL HEMOGLOBIN, MCH 28.8 27 - 34 pg [facility] MEAN CELL HEMOGLOGIN CONCENTRATION, MCHC 34.6 32 - 36 g/dL [facility] RED CELL DISTRIBUTION WIDTH, RDW 14.8 11.5 - 15.0 % [facility] PLATELET COUNT 238 150 - 450 X10E9/L [facility] MEAN PLATELET VOLUME, MPV 9.0 7 - 12 fL [facility] % NEUTROPHILS 67.1 % [facility] % LYMPHOCYTES 15.5 % [facility] % MONOCYTES 11.7 % [facility] % EOSINOPHILS 4.7 % [facility] % BASOPHILS 1.0 % [facility] ABSOLUTE NEUTROPHIL 5.1 1.5 - 6.6 X10E9/L [facility] ABSOLUTE LYMPHOCYTE 1.2 1.0 - 3.5 X10E9/L [facility] ABSOLUTE MONOCYTE 0.9 0 - 0.9 X10E9/L [facility] ABSOLUTE EOSINOPHIL 0.4 0.0 - 0.4 X10E9/L [facility] ABSOLUTE BASOPHIL 0.1 0.0 - 0.2 X10E9/L [facility] Comment:PERFORMED AT [facility] [address],[place] [address] 09/26/2022 1:32 PM EDT 09/26/2022 1:33 PM EDT us Harley STRINGER LAB BLOOD ORDERABLES Final Re sult Performing Organization Address City/[facility]/ZIP Co de Phone Number [facility] * REPEATED ABO/RH ([facility]) (07/18/2022 6:45 AM EDT) ABO/RH(D) A POSITIVE [facility] Comment:PERFORMED AT [address] [place] [address] 07/18/2022 6:45 AM EDT 07/18/2022 6:52 AM EDT us Jr. Mahad Niño DO LAB BLOOD ORDERABLES Fi nal Result [facility] * TYPE AND CROSSMATCH ([facility]) (07/13/2022 8:39 AM EDT) ARM BAND NUMBER [id number] [facility] ABO/RH(D) A POSITIVE [facility] ANTIBODY SCREEN NEGATIVE [facility] Comment:PERFORMED AT [address] [place] [address] 07/13/2022 8:39 AM EDT 07/13/2022 8:40 AM EDT us Jr. Mahad Niño DO LAB BLOOD ORDERABLES Fi nal Result [facility] * XR lower extremity leg length evaluation (06/27/2022 8:00 AM EDT) Anatomical Region Laterality Modality Lower Extremities Radiographic I maging 06/27/2022 8:00 AM EDT Narrative 06/27/2022 7:59 AM EDT THIS EXAM WAS PERFORMED AT [facility] LEG LENGTH STUDY HISTORY: Preop examination, pain COMPARISON: None FINDINGS: Leg lengths measured from the acetabular rims to the talar domes. Right lower extremity measures 81.7 cm and left lower extremity measures 81.9 cm. Right knee osteoarthritis. No significant varus or valgus angulation in either leg. IMPRESSION: Leg length study with measurements and other findings as described above. Finalized by Ronal Echeverria MD on 06/27/2022 7:59 AM Procedure Note Radiology, Radiologist, MD - 06/28/2022 THIS EXAM WAS PERFORMED AT [facility] LEG LENGTH STUDY HISTORY: Preop examination, pain COMPARISON: None FINDINGS: Leg lengths measured from the acetabular rims to the talar domes. Rightlower extremity measures 81.7 cm and left lower extremity measures 81.9cm. Right knee osteoarthritis. No significant varus or valgus angulationin either leg. IMPRESSION: Leg length study with measurements and other findings as describedabove. Finalized by Ronal Echeverria MD on 06/27/2022 7:59 AM us Jr. Mahad Niño DO IMG XR PROCEDURES Final Result * Urine culture (06/26/2022 10:31 AM EDT) [facility] URINE CULTURE RESULTS BELOW [facility] Comment: SPECIMEN DESCRIPTION CLEAN CATCH MIDSTREAM URINE CULTURE RESULTS NO GROWTH AT <1000 CFU/mL REPORT STATUS 06/27/2022 FINAL PERFORMED AT [facility] [address],[place] [address] 06/26/2022 10:3 1 AM EDT 06/26/2022 10:33 AM EDT Jr. Mahad Niño DO LAB MICROBIOLOGY - GENE RAL ORDERABLES Final Result [facility] * CBC auto differential (06/26/2022 10:31 AM EDT) Pathologist [facility] WHITE BLOOD CELL COUNT, WBC 8.2 4.0 - 11.0 X10E9/L [facility] RED BLOOD CELL COUNT, RBC 5.46 4.10 - 5.70 X10E12/L [facility] HEMOGLOBIN 16.0 13.0 - 17.0 g/dL [facility] HEMATOCRIT 47.0 39 - 49 % [facility] MEAN CELL VOLUME, MCV 86 80 - 100 fL [facility] MEAN CELL HEMOGLOBIN, MCH 29.3 27 - 34 pg [facility] MEAN CELL HEMOGLOGIN CONCENTRATION, MCHC 34.0 32 - 36 g/dL [facility] RED CELL DISTRIBUTION WIDTH, RDW 14.1 11.5 - 15.0 % [facility] PLATELET COUNT 198 150 - 450 X10E9/L [facility] MEAN PLATELET VOLUME, MPV 8.9 7 - 12 fL [facility] % NEUTROPHILS 68.7 % [facility] % LYMPHOCYTES 17.0 % [facility] % MONOCYTES 10.6 % [facility] % EOSINOPHILS 2.6 % [facility] % BASOPHILS 1.1 % [facility] ABSOLUTE NEUTROPHIL 5.6 1.5 - 6.6 X10E9/L [facility] ABSOLUTE LYMPHOCYTE 1.4 1.0 - 3.5 X10E9/L [facility] ABSOLUTE MONOCYTE 0.9 0 - 0.9 X10E9/L [facility] ABSOLUTE EOSINOPHIL 0.2 0.0 - 0.4 X10E9/L [facility] ABSOLUTE BASOPHIL 0.1 0.0 - 0.2 X10E9/L [facility] Comment:PERFORMED AT [place] [id number],[place] [address] 06/26/2022 10:3 1 AM EDT 06/26/2022 10:[address] [facility] LAB BLOOD ORDERABLES Fi nal Result Performing Organization Address [facility] de Phone Number [facility] * (ABNORMAL) Basic metabolic panel (06/26/2022 10:31 AM EDT) Sodium 139 134 - 146 mmol/L [facility] Potassium, Bld 3.9 3.5 - 5.0 mmol/L [facility] Chloride 101 98 - 109 mmol/L [facility] Carbon Dioxide 27 22 - 32 mmol/L [facility] Anion Gap 11 5 - 15 mmol/L [facility] BUN 28(H) 5 - 27 mg/dL [facility] Creatinine 1.39(H) 0.60 - 1.30 mg/dL [facility] Comment:METHOD TRACEABLE TO IDMS STANDARD Glucose 131(H) 65 - 99 mg/dL [facility] Calcium 9.9 8.5 - 10.5 mg/dL [facility] EGFR 55(L) >59 ml/min/1.7 3sq.m [facility] Comment: Reported eGFR is based on the CKD-EPI 2020 equation that does not use a race coefficient. PERFORMED AT [facility] [address],[place] [address] 06/26/2022 10:3 1 AM EDT 06/26/2022 10:[address] [facility] LAB BLOOD ORDERABLES Fi nal Result Performing Organization Address [facility] de Phone Number [facility] * Urinalysis, manual only (06/26/2022 10:31 AM EDT) COLOR YELLOW YELLOW [facility] TURBIDITY CLEAR CLEAR [facility] SPECIFIC GRAVITY 1.017 1.003 - 1.035 [facility] NITRITE Negative Negative [facility] PH, URINE 6.0 5.0 - 8.5 [facility] LEUKOCYTE ESTERASE Negative Negative [facility] PROTEIN Negative Negative mg/dL [facility] GLUCOSE (URINE) Negative Negative mg/dL [facility] KETONES (URINE) Negative Negative mg/dL [facility] UROBILINOGEN <1.1 <1.1 eu/dL [facility] BILIRUBIN (URINE) Negative Negative [facility] BLOOD/HGB Negative Negative [facility] 06/26/2022 10:3 1 AM EDT 06/26/2022 10:33 AM EDT Jr. Mahad Niño DO LAB URINE ORDERABLES Fi nal Result [facility] documented in this encounter Visit Diagnoses Not on filedocumented in this encounter Care Teams Professional Development Instructor Relationship Specialty Start Date End Date Demetrius Zhou MD [address] [place] [address] PCP - General Family Medicine 04/25/23 Demetrius Zhou MD [address] [place] [address] PCP - Dwayne KHAN 10/07/23 documented as of this encounter
--- OUTSIDE RECORDS SUMMARY | 2024-09-19 10:17 | XMS_ITS | Encounter Summary ---
Author Organization [facility] Address [address] [facility] [place] [address] Care Team Providers Care Journeyman Welder Name Role Phone Demetrius Zhou MD Primary Care Provider [phone] Demetrius Zhou MD Unavailable Encounter Details Date Type Department Care Team (Late st Contact Info) Description 07/14/2024 Abstract [facility] [address] [place] [phone] Demetrius Zhou MD [address] [place] [address] Social History Tobacco Use Types Packs/Day Years Used Date Smoking Tobacco: Former Cigarettes 30 975 - 2004 Smokeless Tobacco: Never Alcohol [...] How often do you attend chur or oriental orthodox services? Never 07/07/2024 Do you belong to any clubs o r organizations such as denominational groups, unions, fraternal or athletic groups, or [...] care, and heating? Not very hard 07/07/2024 [facility] Occupat ional Health - Occupational Stress [...] place to sleep or slept in a nursing home (including now)? No 02/12/2023 Housing Stability Vital Sign Answer Elvin e Recorded In the last 12 months, was t here a time when you were not able to pay the mortgage or rent on time? No 07/07/2024 Number of Times Moved in the Last Year Not on fi le 07/07/2024 At any time in the past 12 m [facility], were you homeless or living in a nursing home (including now)? No 07/07/2024 Sex and Gender Information Value Date Recorded Sex Assigned at Not on file Legal Sex Male 11:34 PM EDT Gender Identity Not on file Sexual Orientation Not on file documented as of this encounter Plan of Treatment Upcoming Encounters Date Type Department Care Team (Late st Contact Info) Description 10/20/2024 1:00 PM EDT Office Visit [facility] [address] [place] [address] Demetrius Zhou MD [address] [place] [address] 10/21/2025 1:30 PM EDT Office Visit [facility] [address] [place] [phone] Jr. Mahad Niño, DO [address] [facility] [address] [place] [address] documented as of this encounter Visit Diagnoses Not on filedocumented in this encounter Care Teams Journeyman Welder Relationship Specialty Start Date End Date Demetrius Zhou MD [address] [place] [address] PCP - General Family Medicine 04/25/23 Demetrius Zhou MD [address] [place] [address] PCP - Dwayne KHAN 10/07/23 documented as of this encounter
--- OUTSIDE RECORDS SUMMARY | 2024-09-19 10:17 | XMS_ITS | Encounter Summary ---
Author Organization [facility] Address [address] [place] [address] Care Team Providers Care Warehouse Laborer Name Role Phone Demetrius Zhou MD Primary Care Provider [phone] Demetrius Zhou MD Unavailable Encounter Details Date Type Department Care Team (Late Contact Info) Description 08/31/2022 Abstract [facility] [address] [place] [phone] Reagan Castillo, PT Social History Tobacco Use Types Packs/Day Years [...] Office Visit [facility] [address] [place] [phone] Demetrius Zhou MD [address] [place] [address] 10/21/2025 1:30 PM EDT Office Visit [facility] [place] [facility] [address] [place] [address] Jr. Mahad Niño, DO [address] [place] [address] documented as of this encounter Visit Diagnoses Not on filedocumented in this encounter Care Teams Warehouse Laborer Relationship Specialty Start Date End Date Demetrius Zhou MD [address] [place] [address] PCP - General Family Medicine 04/25/23 Demetrius Zhou MD [address] [place] [address] PCP - Dwayne KHAN 10/07/23 documented as of this encounter
--- OUTSIDE RECORDS SUMMARY | 2024-09-19 10:17 | XMS_ITS | Encounter Summary ---
Author Organization [facility] Address [address] [place] [address] Care Team Providers Care Medical Program Specialist Name Role Phone Demetrius Zhou MD Primary Care Provider [phone] Demetrius Zhou MD Unavailable Encounter Details Date Type Department Care Team (Late st Contact Info) Description 07/16/2024 Results Follow-Up [facility] [address] [place] [address] Demetrius Zhou MD [address] [place] [phone] Hemoglobin A1c Social History Tobacco Use Types Packs/Day Years [...] 07/07/2024 How often do you attend chur ch or jehovah's witness services? Never 07/07/2024 Do you belong to any clubs o r organizations such as mandaeism groups, unions, fraternal or athletic groups, or [...] care, and heating? Not very hard 07/07/2024 [facility] Occupat ional Health - Occupational Stress [...] place to sleep or slept in a chcf (including now)? No 02/12/2023 Housing Stability Vital Sign Answer Elvin e Recorded In the last 12 months, was t here a time when you were not able to pay the mortgage or rent on time? No 07/07/2024 Number of Times Moved in the Last Year Not on fi le 07/07/2024 At any time in the past 12 m [facility], were you homeless or living in a chcf (including now)? No 07/07/2024 Sex and Gender [...] Visit [facility] [address] [place] [phone] Demetrius Zhou MD [address] [place] [address] 10/21/2025 1:30 PM EDT Office Visit [facility] [address] [place] [address] Jr. Mahad Niño, DO [address] [place] [address] documented as of this encounter Visit Diagnoses Not on filedocumented in this encounter Care Teams Medical Program Specialist Relationship Specialty Start Date End Date Demetrius Zhou MD [address] [place] [address] PCP - General Family Medicine 04/25/23 Demetrius Zhou MD [address] [place] [address] PCP - Dwayne KHAN 10/07/23 documented as of this encounter
[2024-09-19 10:19] VITALS: BP 165/94; PULSE 66; TEMP 37.1; O2SAT 98; BMI 25.8
--- OUTSIDE RECORDS SUMMARY | 2024-09-19 10:19 | XMS_ITS | CCD ---
Author Organization [facility] Care Team Providers Care Scoring Machine Operator Name Role Phone RUDOLPH, DR DEMETRIUS Vincent Primary Care Unavailable FAWALYSIA, SHAIKH Andi Attending Unavailable FAWWAAtiya, SHAIKH Andi Admitting Unavailable ZIEBER, DR BILLY Velásquez Consulting Unavailable FAWWAD, SHAIKH Andi Consulting Unavailable STEPANIC, DR GREWAL Attending Unavailable STEPANIC, DR GREWAL Consulting Unavailable STEPANIC, DR GREWAL Admitting Unavailable NADERER, DR DEMETRIUS Vincent Primary Care Unavailable HEMET, DR JAZMYN Pettit Consulting Unavailable NADERER, DR DEMETRIUS Vincent Admitting Unavailable NADERER, DR DEMETRIUS Vincent Attending Unavailable NADERER, DR DEMETRIUS Vincent Primary Care Unavailable ZIEBER, DR BILLY Velásquez Consulting Unavailable NADERER, DR DEMETRIUS Vincent Consulting Unavailable NADERER, DR DEMETRIUS Vincent Attending Unavailable NADERER, DR DEMETRIUS Vincent Consulting Unavailable NADERER, DR DEMETRIUS Vincent Primary Care Unavailable NADERER, DR DEMETRIUS Vincent Admitting Unavailable Demetrius Galdamez MD Primary Care Provider [phone] Demetrius Galdamez MD Unavailable Demetrius Galdamez MD Primary Care Provider DEMETRIUS GALDAMEZ Attending Unavailable DEMETRIUS GALDAMEZ Attending Unavailable JR. RENAY, URI Davila Attending Unavaila mario NIÑO JR., URI Davila Referring Unavaila ble DEMETRIUS GALDAMEZ Attending Unavailable DEMETRIUS GALDAMEZ Referring Unavailable DEMETRIUS GALDAMEZ Primary Care Unavailable DEMETRIUS GALDAMEZ Referring Unavailable DEMETRIUS GALDAMEZ Primary Care Unavailable DEMETRIUS GALDAMEZ Referring Unavailable DEMETRIUS GALDAMEZ Primary Care Unavailable Medications Current Medications Medication Drug Class(es) Dates Sig (Normalized) Sig (Original) atenolol 25 mg oral tablet (11 sources) beta-Adrenergic Dedrick Start: 05-22-2024 take 1 tablet by mouth once daily atenolol (Tenormin) 25 MG tablet Indications: Essential hypertension, benign (CMS/HCC) TAKE 1 TABLET BY MOUTH EVERY DAY 90 tablet 3 05/22/2024 Active Start: 06-01-2023 take 1 tablet by bo th once daily atenolol (Tenormin) 25 MG tablet Indications: Essential hypertension, benign (CMS/HCC) TAKE 1 TABLET BY MOUTH EVERY DAY 90 tablet 3 06/01/2023 Active cholecalciferol 0.025 mg oral capsule (11 sources) Vitamin D Start: 11-26-2023 take 1 capsule by mouth once daily [facility] D3 25 MCG (1000 UT) capsule Indications: Vitamin D deficiency TAKE 1 CAPSULE BY MOUTH EVERY DAY 90 capsule 2 11/26/2023 Active Start: 11-30-2022 take 1 capsule by mo uth in the morning cholecalciferol (Vitamin D-3) 25 MCG (1000 UT) capsule Take 1 capsule by mouth in the morning. 11/30/2022 Active take 1 tablet by bo th in the morning cholecalciferol, vitamin D3, 5,000 units tablet Take 1 tablet (5,000 Units total) by mouth in the morning. Active furosemide 40 mg oral tablet (11 sources) Loop Diuretic Start: 05-22-2024 take 1 tablet by mouth once daily furosemide (Lasix) 40 MG tablet Indications: Essential hypertension, benign (CMS/HCC) TAKE 1 TABLET BY MOUTH EVERY DAY 90 tablet 3 05/22/2024 Active Start: 06-01-2023 take 1 tablet by bo th once daily furosemide (Lasix) 40 MG tablet Indications: Essential hypertension, benign (CMS/HCC) TAKE 1 TABLET BY MOUTH EVERY DAY 90 tablet 3 06/01/2023 Active lisinopril 20 mg oral tablet (11 sources) Angiotensin Converting Enzyme Inhibitor Start: 05-22-2024 take 1 tablet by mouth once daily lisinopril 20 MG tablet Indications: Essential hypertension, benign (CMS/HCC) TAKE 1 TABLET BY MOUTH EVERY DAY 90 tablet 3 05/22/2024 Active Start: 06-01-2023 take 1 tablet by bo th once daily lisinopril 20 MG tablet Indications: Essential hypertension, benign (CMS/HCC) TAKE 1 TABLET BY MOUTH EVERY DAY 90 tablet 3 06/01/2023 Active take 1 tablet by bo th in the morning lisinopril (PRINIVIL,ZESTRIL) 10 mg tablet Take 1 tablet (10 mg total) by mouth in the morning. Active omeprazole 20 mg delayed release oral capsule (11 sources) Proton Pump Inhibitor Start: 05-22-2024 take 1 capsule by mouth once daily omeprazole (PriLOSEC) [address] capsule Indications: Gastroesophageal reflux disease without esophagitis TAKE 1 CAPSULE BY MOUTH EVERY DAY 90 capsule 3 05/22/2024 Active Start: 06-01-2023 take 1 capsule by mo uth once daily omeprazole (PriLOSEC) [address] capsule Indications: Gastroesophageal reflux disease without esophagitis TAKE 1 CAPSULE BY MOUTH EVERY DAY 90 capsule 3 06/01/2023 Active pravastatin sodium 40 mg oral tablet (10 sources) HMG-CoA Reductase Inhibitor Start: 05-22-2024 take 1 tablet by mouth once daily at bedtime pravastatin (Pravachol) 40 MG tablet Indications: Dyslipidemia (CMS/HCC) TAKE 1 TABLET BY MOUTH EVERYDAY AT BEDTIME 90 tablet 3 05/22/2024 Active Start: 06-01-2023 take 1 tablet by bo th once daily at bedtime pravastatin (Pravachol) 40 MG tablet Indications: Dyslipidemia (CMS/HCC) TAKE 1 TABLET BY MOUTH EVERYDAY AT BEDTIME 90 tablet 3 06/01/2023 Active Completed/Discontinued Medications Medication Drug Class(es) Dates Sig (Normalized) Sig (Original) apixaban 5 mg oral tablet (12 sources) Factor Xa Inhibitor Start: 11-05-2023 End: 07-14-2024 take 1 tablet by mouth in the morning apixaban (Eliquis) 5 MG tablet Indications: Acute embolism and thrombosis of right femoral vein (CMS/HCC) , Acute thromboembolism of deep veins of proximal leg (CMS/HCC) Take 1 tablet (5 mg) by mouth in the morning and 1 tablet (5 mg) before bedtime. 60 tablet 5 11/05/2023 07/14/2024 Discontinued Start: 04-23-2023 take 1 tablet by bo th twice daily Eliquis 5 MG tablet Indications: Acute embolism and thrombosis of right femoral vein (CMS/HCC) , Acute thromboembolism of deep veins of proximal leg (CMS/HCC) TAKE 1 TABLET BY MOUTH TWICE A DAY 60 tablet 5 04/23/2023 Active Start: 07-19-2022 take 1 tablet by mouth once ap ixaban (ELIQUIS) 2.5 mg tablet Take 1 tablet (2.5 mg total) by mouth Every 12 (twelve) hours. 07/19/2022 Active Problems Active Problems Problem Classification Problem Date Documented Da te Episodic/Chronic Chronic kidney disease (7 sources) Chronic kidney disease stage 3A ; Translations: [CKD stage 3a, GFR 45-59 ml/min (CMS/HCC)] Onset: 5 02-07-2024 Chronic Diabetes mellitus with complications (19 sources) Hyperglycemia due to type 2 diabetes mellitus; Translations: [Type 2 diabetes mellitus with hyperglycemia] Onset: 4 08-10-2023 Chronic Disorders of lipid metabolism (16 sources) Hyperlipidemia, unspecified; Translations: [Dyslipidemia] Onset: 2 02-13-2023 Chronic Esophageal disorders (10 sources) Gastroesophageal reflux disease; Translations: [Gastro-esophageal reflux disease without esophagitis] Onset: 4 02-13-2023 Chronic Essential hypertension (19 sources) Essential (primary) hypertension; Translations: [Benign essential hypertension] Onset: 2 Chronic Nutritional deficiencies (12 sources) Vitamin D deficiency, unspecified; Translations: [Vitamin D deficiency] Onset: 2 02-13-2023 Chronic Osteoarthritis (20 sources) Idiopathic osteoarthritis; Translations: [Primary osteoarthritis, unspecified site] Onset: 3 07-10-2022 Chronic Other and ill-defined cerebrovascular disease (10 sources) Cerebrovascular disease; Translations: [Cerebrovascular disease, unspecified] Onset: 4 02-13-2023 Chronic Other connective tissue disease (10 sources) History of total knee arthroplasty; Translations: [Presence of right artificial knee joint] Onset: 3 07-20-2022 Chronic Other connective tissue disease (4 sources) Pain in right lower leg; Translations: [PAIN IN RIGHT LOWER LEG] Onset: 3 Episodic Other nervous system disorders (10 sources) Difficulty walking; Translations: [Difficulty in walking, not elsewhere classified] Onset: 3 07-20-2022 Chronic Phlebitis; thrombophlebitis and thromboembolism (16 sources) Chronic embolism and thrombosis of right femoral vein; Translations: [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] Onset: 3 Chronic Phlebitis; thrombophlebitis and thromboembolism (8 sources) Acute embolism and thrombosis of right femoral vein; Translations: [Acute embolism and thrombosis of right popliteal vein] Onset: 2 Episodic Residual codes; unclassified (14 sources) Bilateral lower limb edema; Translations: [Localized edema] Onset: 4 02-13-2023 Episodic Past or Other Problems Problem Classification Problem Date Documented Da te Episodic/Chronic Diabetes mellitus without complication (2 sources) Prediabetes; Translations: [PREDIABETES] Onset: 08-16-2021 Episodic Other aftercare (2 sources) Other assisted (current) drug therapy; Translations: [OTH DETENTION CURRENT DRUG THERAPY] Onset: 08-16-2021 Episodic Other aftercare (10 sources) Long-term current use of drug therapy; Translations: [Other oil heaterman (current) drug therapy] Onset: 08-06-2023 08-06-2023 Episodic Other non-traumatic joint disorders (13 sources) Pain in right knee; Translations: [Pain in joint, lower leg] Onset: 07-18-2022 Resolved: 08-06-2023 08-06-2023 Episodic Other screening for suspected conditions (not mental disorders or infectious disease) (12 sources) Encounter for screening for malignant neoplasm of prostate; Translations: [Patient encounter status] Onset: 08-16-2021 08-06-2023 Episodic Results Test Name Value Interpretation Reference Range Facility HEMOGLOBIN A1Con 07-16-2024 Glucose [Mass/Vol] 146 mg/dL Normal [facility] Comment on above: Performed By: #### C BCA, HA1C, BMP, 92678-2, LIVR, 2857-1, 2132-9, 29254-2 #### [facility] ([id number]) [address], [address] [place] [address] HbA1c (Bld) [Mass fraction] 6.7 % High 4.4-5.6 [facility] Comment on above: Result Comment: ADA Guidelines Result HgbA1c Normal : less than 5.7 % Prediabetes : 5.7 % to 6.4 % Diabetes : > 6.4 % Use with caution in patients with abnormal hemoglobin variants as the half-life of red blood cells and in vivo glycation rates are affected. Performed By: #### C BCA, HA1C, BMP, 52658-4, LIVR, 2857-1, 2132-9, 25290-4 #### [facility] ([id number]) [address] [place] [address] HGB A1C (GLYCO-HGB)on 2024 Glucose [Mass/Vol] 151 mg/dL Normal [facility] Comment on above: Performed By: #### H A1C #### [facility] ([id number]) [address] [address] HbA1c (Bld) [Mass fraction] 6.9 % High 4.4-5.6 [facility] Comment on above: Result Comment: NOTE ADA Guidelines Result HgbA1c Normal : less than 5.7 % Prediabetes : 5.7 % to 6.4 % Diabetes : > 6.4 % Use with caution in patients with abnormal hemoglobin variants as the half-life of red blood cells and in vivo glycation rates are affected. Performed By: #### H A1C #### [facility] ([id number]) [address] [address] MICROALBUMIN - ALBUMIN:CREAT ININE URINE RATIOon 02-12-2024 ALB/CREAT RATIO 46.9 mg/g creat High 0.0-30.0 [facility] Comment on above: Performed By: #### M ALBU #### [facility] ([id number]) [address] [address] Albumin DL <= 20 mg/L (U) [Mass/Vol] 12.7 mg/dL High 0.0-1.9 [facility] Comment on above: Performed By: #### M ALBU #### [facility] ([id number]) [address], [address] [place] [address] URINE CREAT 270.99 mg/dL Normal [facility] Comment on above: Performed By: #### Arie LEWIS #### [facility] ([id number]) [address], [address] [place] [address] XR Knee - right 1 or 2 Views on 10-24-2023 Imaging Result: AP and lateral of right knee showed surgical position and alignment of prosthetic components without evidence of loosening or wear to the femoral, tibial, or patellar components. The alignment appeared to be anatomic. There was no evidence of accelerated or asymmetric wear to the patellar button or tibial tray. There was no evidence of fracture and/or dislocation. Impression: Unremarkable right total knee arthroplasty. [facility] Radiology Study observation (narrative) [facility] BASIC METABOLIC PANLon 08-09 Anion gap [Moles/Vol] 11 mmol/L Normal 5-15 [facility] Comment on above: Performed By: #### C BCA, HA1C, BMP, 81452-8, LIVR, 2857-1, 2132-9, 58462-6 #### [facility] ([id number]) [address], [address] [place] [address] Calcium [Mass/Vol] 9.1 mg/dL Normal 8.5-10.[address] [facility] Comment on above: Performed By: #### C BCA, HA1C, BMP, 22068-2, LIVR, 2857-1, 2132-9, 14988-6 #### [facility] ([id number]) [address], [address] [place] [address] Chloride [Moles/Vol] 103 mmol/L Normal 98-109 [facility] Comment on above: Performed By: #### C BCA, HA1C, BMP, 61603-9, LIVR, 2857-1, 2132-9, 66341-3 #### [facility] ([id number]) [address], [address] [place] [address] CO2 [Moles/Vol] 29 mmol/L Normal 22-32 [facility] Comment on above: Performed By: #### C BCA, HA1C, BMP, 81108-1, LIVR, 2857-1, 9, 12432-9 #### [facility] ([id number]) [address], [address] [place] [address] Creatinine [Mass/Vol] 1.36 mg/dL High 0.60-1.30 [facility] Comment on above: Result Comment: METH OD TRACEABLE TO IDMS STANDARD Performed By: #### C BCA, HA1C, BMP, 28367-3, LIVR, 2857-1, 2131-10, 85883-5 #### [facility] ([id number]) [address], [address] [place] [address] GFR/1.73 sq M.predicted among non-blacks MDRD (S/P/Bld) [Vol rate/Area] 56 mL/min/{1.73_m2} Low >59 [facility] Comment on above: Result Comment: Reported eGFR is based on the CKD-EPI 2020 equation that does not use a race coefficient. Performed By: #### C BCA, HA1C, BMP, 43522-5, LIVR, 2857-1, 2131-10, 54881-8 #### [facility] ([id number]) [address], [address] [place] [address] Glucose [Mass/Vol] 129 mg/dL High 65-[address] [facility] Comment on above: Performed By: #### C BCA, HA1C, BMP, 97620-0, LIVR, 2857-1, 2131-10, 67319-3 #### [facility] ([id number]) [address], [address] [place] [address] Potassium [Moles/Vol] 3.9 mmol/L Normal 3.5-5.0 [facility] Comment on above: Performed By: #### C BCA, HA1C, BMP, 31968-8, LIVR, 2857-1, 9, 49706-3 #### [facility] ([id number]) [address] [address] [place] [address] Sodium [Moles/Vol] 143 mmol/L Normal 134-[address] [facility] Comment on above: Performed By: #### C BCA, HA1C, BMP, 61314-8, LIVR, 2857-1, 9, 43112-4 #### [facility] ([id number]) [address], [facility] [address] [place] [address] Urea nitrogen [Mass/Vol] 21 mg/dL Normal 5-27 [facility] Comment on above: Performed By: #### C BCA, HA1C, BMP, 43403-5, LIVR, 2857-1, 9, 57787-2 #### [facility] ([id number]) [address], [address] [place] [address] CBC AND AUTO DIFFon 07-05-20 24 ABSOLUTE BASOPHIL 0.1 X10E9/L Normal 0.0-0.[address] [facility] Comment on above: Performed By: #### C BCA, HA1C, BMP, 57304-8, LIVR, 2857-1, 9, 99933-7 #### [facility] ([id number]) [address] [facility] [address] [place] [address] ABSOLUTE NEUTROPHIL 6.2 X10E9/L Normal 1.5-6.6 [facility] Comment on above: Performed By: #### C BCA, HA1C, BMP, 79732-4, LIVR, 2857-1, 9, 10852-0 #### [facility] ([id number]) [address] [place] [address] Basophils/100 WBC (Bld) 1.0 % Normal [facility] Comment on above: Performed By: #### C BCA, HA1C, BMP, 60250-9, LIVR, 2857-1, 2131-9, 41491-8 #### [facility] ([id number]) [address], [address] [place] [address] Eosinophils (Bld) [#/Vol] 0.2 10*3/uL Normal 0.0-0.4 [facility] Comment on above: Performed By: #### C BCA, HA1C, BMP, 47573-4, LIVR, 2857-1, 2131-9, 10393-2 #### [facility] ([id number]) [address], [address] [place] [address] Eosinophils/100 WBC (Bld) 2.7 % Normal [facility] Comment on above: Performed By: #### C BCA, HA1C, BMP, 32015-3, LIVR, 2857-1, 2131-9, 02851-3 #### [facility] ([id number]) [address], [address] [place] [address] Erythrocyte distribution width (RBC) [Ratio] 14.2 % Normal 11.5-15.0 [facility] Comment on above: Performed By: #### C BCA, HA1C, BMP, 24653-2, LIVR, 2857-1, 2131-9, 01283-8 #### [facility] ([id number]) [address], [address] [place] [address] Hematocrit (Bld) [Volume fraction] 47.7 % Normal 39-49 [facility] Comment on above: Performed By: #### C BCA, HA1C, BMP, 97657-4, LIVR, 2857-1, 2131-9, 41603-9 #### [facility] ([id number]) [address], [address] [place] [address] Hemoglobin (Bld) [Mass/Vol] 15.9 g/dL Normal 13.0-17.0 [facility] Comment on above: Performed By: #### C BCA, HA1C, BMP, 84209-8, LIVR, 2857-1, 9, 15244-9 #### [facility] ([id number]) [address], [address] [place] [address] Lymphocytes (Bld) [#/Vol] 1.3 10*3/uL Normal 1.0-3.5 [facility] Comment on above: Performed By: #### C BCA, HA1C, BMP, 23214-4, LIVR, 2857-1, 9, 22852-8 #### [facility] ([id number]) [address] [facility] [address] [place] [address] Lymphocytes/100 WBC (Bld) 15.1 % Normal [facility] Comment on above: Performed By: #### C BCA, HA1C, BMP, 81326-3, LIVR, 2857-1, 2131-10, 31575-3 #### [facility] ([id number]) [address], [address] [place] [address] MCH (RBC) [Entitic mass] 28.6 pg Normal 27-34 [facility] Comment on above: Performed By: #### C BCA, HA1C, BMP, 29936-5, LIVR, 2857-1, 9, 20227-7 #### [facility] ([id number]) [address], [address] [place] [address] MCHC (RBC) [Mass/Vol] 33.3 g/dL Normal 32-36 [facility] Comment on above: Performed By: #### C BCA, HA1C, BMP, 98146-7, LIVR, 2857-1, 9, 90255-7 #### [facility] ([id number]) [address], [address] [place] [address] MCV (RBC) [Entitic vol] 86 fL Normal 80-100 [facility] Comment on above: Performed By: #### C BCA, HA1C, BMP, 71294-5, LIVR, 2857-1, 2131-9, 44955-5 #### [facility] ([id number]) [address], [address] [place] [address] Monocytes (Bld) [#/Vol] 0.8 10*3/uL Normal 0-0.9 [facility] Comment on above: Performed By: #### C BCA, HA1C, BMP, 15331-9, LIVR, 2857-1, 2131-9, 16972-3 #### [facility] ([id number]) [address], [address] [place] [address] Monocytes/100 WBC (Bld) 9.5 % Normal [facility] Comment on above: Performed By: #### C BCA, HA1C, BMP, 09068-1, LIVR, 2857-1, 2131-9, 95560-4 #### [facility] ([id number]) [address], [address] [place] [address] Neutrophils/100 WBC (Bld) 71.7 % Normal [facility] Comment on above: Performed By: #### C BCA, HA1C, BMP, 14384-8, LIVR, 2857-1, 2131-9, 49699-5 #### [facility] ([id number]) [address], [address] [place] [address] Platelet mean volume (Bld) [Entitic vol] 9.0 fL Normal 7-12 [facility] Comment on above: Performed By: #### C BCA, HA1C, BMP, 98572-9, LIVR, 2857-1, 2131-9, 63438-2 #### [facility] ([id number]) [address], [address] [place] [address] Platelets (Bld) [#/Vol] 167 10*3/uL Normal 150-450 [facility] Comment on above: Performed By: #### C BCA, HA1C, BMP, 81285-1, LIVR, 2857-1, 9, 88207-3 #### [facility] ([id number]) [address], [address] [place] [address] RBC COUNT 5.55 X10E12/L Normal 4.10-5.70 [facility] Comment on above: Performed By: #### C BCA, HA1C, BMP, 81273-0, LIVR, 2857-1, 9, 02621-2 #### [facility] ([id number]) [address], [address] [place] [address] WBC (Bld) [#/Vol] 8.6 10*3/uL Normal 4.0-11.[address] [facility] Comment on above: Performed By: #### C BCA, HA1C, BMP, 23929-7, LIVR, 2857-1, 2131-10, 08284-5 #### [facility] ([id number]) [address], [address] [place] [address] HGB A1C (GLYCO-HGB)on 2023 Glucose [Mass/Vol] 148 mg/dL Normal [facility] Comment on above: Performed By: #### C BCA, HA1C, BMP, 16956-2, LIVR, 2857-1, 9, 66440-0 #### [facility] ([id number]) [address], [address] [place] [address] HbA1c (Bld) [Mass fraction] 6.8 % High 4.4-5.6 [facility] Comment on above: Result Comment: NOTE ADA Guidelines Result HgbA1c Normal : less than 5.7 % Prediabetes : 5.7 % to 6.4 % Diabetes : > 6.4 % Use with caution in patients with abnormal hemoglobin variants as the half-life of red blood cells and in vivo glycation rates are affected. Performed By: #### C BCA, HA1C, BMP, 82386-4, LIVR, 2857-1, 213-9, 09035-9 #### [facility] ([id number]) [address], [address] [place] [address] LIVER PANELon 08-10-2023 Albumin [Mass/Vol] 4.4 g/dL Normal 3.2-5.[address] [facility] Comment on above: Performed By: #### C BCA, HA1C, BMP, 56183-2, LIVR, 2857-1, 2131-9, 07657-9 #### [facility] ([id number]) [address], [address] [place] [address] ALP [Catalytic activity/Vol] 64 U/L Normal 39-130 [facility] Comment on above: Performed By: #### C BCA, HA1C, BMP, 25067-5, LIVR, 2857-1, 2131-9, 17489-9 #### [facility] ([id number]) [address], [address] [place] [address] ALT [Catalytic activity/Vol] 27 U/L Normal 0-40 [facility] Comment on above: Performed By: #### C BCA, HA1C, BMP, 57537-6, LIVR, 2857-1, 2131-9, 91699-6 #### [facility] ([id number]) [address], [address] [place] [address] AST [Catalytic activity/Vol] 19 U/L Normal 0-41 [facility] Comment on above: Performed By: #### C BCA, HA1C, BMP, 85568-6, LIVR, 2857-1, 2131-9, 58186-0 #### [facility] ([id number]) [address], [address] [place] [address] Bilirubin [Mass/Vol] 0.7 mg/dL Normal 0.3-1.2 [facility] Comment on above: Performed By: #### C BCA, HA1C, BMP, 09211-4, LIVR, 2857-1, 2131-9, 21104-8 #### [facility] ([id number]) [address], [address] [place] [address] Bilirubin.direct [Mass/Vol] 0.1 mg/dL Normal 0.0-0.4 [facility] Comment on above: Performed By: #### C BCA, HA1C, BMP, 93121-2, LIVR, 2857-1, 2131-9, 77970-1 #### [facility] ([id number]) [address] [place] [address] Protein [Mass/Vol] 7.0 g/dL Normal 6.0-8.[address] [facility] Comment on above: Performed By: #### C BCA, HA1C, BMP, 06778-7, LIVR, 2857-1, 2131-9, 18027-6 #### [facility] ([id number]) [address], [address] [place] [address] Lipid 1996 panelon 4 Cholesterol [Mass/Vol] 190 mg/dL Normal 150-200 [facility] Comment on above: Performed By: #### C BCA, HA1C, BMP, 53696-8, LIVR, 2857-1, 2131-9, 19975-5 #### [facility] ([id number]) [address], [address] [place] [address] Cholesterol in HDL [Mass/Vol] 43 mg/dL Normal >39 [facility] Comment on above: Result Comment: HDL <40 mg/dL - High Risk HDL > or = 40mg/dL- Desirable HDL >60 mg/dL - Negative Risk Performed By: #### C BCA, HA1C, BMP, 21267-4, LIVR, 2857-1, 2-9, 25619-0 #### [facility] ([id number]) [address], [address] [place] [address] Cholesterol in LDL [Mass/Vol] 110 mg/dL Normal <130 [facility] Comment on above: Result Comment: LDL <100 mg/dL - Desirable LDL >160 mg/dL - High Risk Performed By: #### C BCA, HA1C, BMP, 65966-1, LIVR, 2857-1, 2131-9, 15591-4 #### [facility] ([id number]) [address], [address] [place] [address] Cholesterol in VLDL [Mass/Vol] 37 mg/dL High 0-30 [facility] Comment on above: Performed By: #### C BCA, HA1C, BMP, 71553-0, LIVR, 2857-1, 2131-9, 50687-3 #### [facility] ([id number]) [address], [address] [place] [address] CHOLESTEROL:HDL 4.4 Normal 1.0-5.0 [facility] Comment on above: Performed By: #### C BCA, HA1C, BMP, 65875-0, LIVR, 2857-1, 2132-9, 33953-0 #### [facility] ([id number]) [address], [address] [place] [address] Triglyceride [Mass/Vol] 185 mg/dL High 27-150 [facility] Comment on above: Performed By: #### C BCA, HA1C, BMP, 83358-1, LIVR, 2857-1, 213-9, 91267-2 #### [facility] ([id number]) [address] [place] [address] Prostate specific Ag [Mass/V ol]on 08-10-2023 PSA SCREEN 0.31 ng/mL Normal 0.00-4.00 [facility] Comment on above: Result Comment: The method used for this test is Vicki Meghana DXI chemiluminescent immunoassay. Values obtained by different assay methods cannot be used interchangeably. Performed By: #### C BCA, HA1C, BMP, 17990-2, LIVR, 2857-1, 9, 55621-4 #### [facility] ([id number]) [address] [address], [address] [place] [address] VITAMIN B12on 08-10-2023 Cobalamin (Vitamin B12) [Mass/Vol] 283 pg/mL Normal 180-914 [facility] Comment on above: Performed By: #### C BCA, HA1C, BMP, 07288-2, LIVR, 2857-1, 2131-10, 89785-3 #### [facility] ([id number]) [address] [place] [address] Vitamin D+Metabolites [Mass/ Vol]on 08-10-2023 VITAMIN D 25 HYD TOT 41.6 ng/mL Normal 30-100 [facility] Comment on above: Result Comment: Vitamin D status 25 [place] Vitamin D Deficiency <20 ng/mL Insufficiency 20-29 ng/mL Sufficiency 30-100 ng/mL Toxicity >100 ng/mL NOTE: A pediatric reference range has not been established by the community support specialist of this kit. The [employer] recommends a Vitamin D level of = or >20ng/mL in infants and children. Performed By: #### C BCA, HA1C, BMP, 32369-5, LIVR, 2857-1, 9, 16651-4 #### [facility] ([id number]) [address], [address] [place] [address] US SARAH DOP LEG RTon 05-28-19 23 US SARAH DOP LEG RT EXAMINATION: US SARAH DOP LEG RT HISTORY: Idiopathic osteoarthritis COMPARISON: 02/17/2022 TECHNIQUE: Grayscale, color and Doppler ultrasound FINDINGS: Region: Right leg Thrombus: Echogenic thrombus identified within one of 2 femoral veins extending from the mid to distal thigh into the popliteal vein. Echogenic thrombus in the small saphenous vein Flow: Decreased flow corresponding to thrombus Compressibility: Partial noncompressibility corresponding to thrombus Augmentation: Normal proximal augmentation IMPRESSION: Occlusive and nonocclusive deep vein thrombus identified within one of 2 mid to distal femoral veins and the popliteal vein. This is grossly stable Superficial vein thrombus small saphenous vein *Exam performed in accordance with AIUM practice guidelines- Peripheral venous ultrasound, May 01, 2009. 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 COMPRESSIBILITY: None visible segments. FLOW: Normal waveform and minimal flow within distal femoral vein, popliteal, and portions of popliteal vein. OTHER: Thrombus within superficial small saphenous vein. IMPRESSION: 1. Duplicated femoral vein with occlusive thrombus within distal portion of the veins; the other femoral vein is patent. 2. Deep vein thrombus within popliteal and segments of posterior tibial veins. 3. Is uncertain whether these represent new thrombus or persistent thrombus from the prior study, with similar regions involved. Electronically authenticated by: BILLY YOUSSEF Date: 2022-02-17 16:20 Normal [facility] CBC AUTO DIFFon 08-11-2021 BASO # 0.1 103/ul Normal 0.0-0.1 [facility] Comment on above: Performed By: #### C BC #### [facility] [address] [address] [address] Mendez Corcoran Basophils/100 WBC (Bld) 1.0 % Normal 0.2-2.0 [facility] Comment on above: Performed By: #### C BC #### [facility] [address] [place] [address] Dr. Mendez Corcoran EO # 0.2 103/ul Normal 0.0-0.7 [facility] Comment on above: Performed By: #### C BC #### [facility] [address] [place] [address] Dr. Mendez Corcoran Eosinophils/100 WBC (Bld) 2.6 % Normal 0.9-7.0 [facility] Comment on above: Performed By: #### C BC #### [facility] [address] [place] [address] Dr. Mendez Corcoran Erythrocyte distribution width (RBC) [Ratio] 13.2 % Normal 11.0-15.0 [facility] Comment on above: Performed By: #### C BC #### [facility] [address] [place] [address] Dr. Mendez Corcoran Hematocrit (Bld) [Volume fraction] 47.9 % Normal 42.0-54.0 [facility] Comment on above: Performed By: #### C BC #### [facility] [address] [place] [address] Dr. Mendez Corcoran Hemoglobin (Bld) [Mass/Vol] 15.6 g/dL Normal 14.0-18.0 [facility] Comment on above: Performed By: #### C BC #### [facility] [address] [place] [address] Dr. Mendez Corcoran IG # 0.02 10e3/ul Normal 0.00-0.03 [facility] Comment on above: Performed By: #### C BC #### [facility] [address] [place] [address] Dr. Mendez Corcoran IG % 0.3 % Normal 0.0-0.5 [facility] Comment on above: Performed By: #### C BC #### [facility] [address] [place] [address] Dr. Mendez Corcoran LYMPH # 1.2 103/ul Normal 1.2-3.8 [facility] Comment on above: Performed By: #### C BC #### [facility] [address] [place] [address] Dr. Mendez Corcoran Lymphocytes/100 WBC (Bld) 15.8 % Critically low 20.5-60.0 [facility] Comment on above: Performed By: #### C BC #### [facility] [address] [place] [address] Dr. Mendez Corcoran MANUAL DIFF REQ NO Normal [facility] Comment on above: Performed By: #### C BC #### [facility] [address] [place] [address] Dr. Mendez Corcoran MCH (RBC) [Entitic mass] 28.3 pg Normal 25.9-34.0 [facility] Comment on above: Performed By: #### C BC #### [facility] [address] [place] [address] Dr. Mendez Corcoran MCHC (RBC) [Mass/Vol] 32.6 g/dL Normal 29.9-35.2 [facility] Comment on above: Performed By: #### C BC #### [facility] [address] [place] [address] Dr. Mendez Corcoran MCV (RBC) [Entitic vol] 86.9 fL Normal 80.0-94.0 [facility] Comment on above: Performed By: #### C BC #### [facility] [address] [place] [address] Dr. Mendez Corcoran MONO # 0.8 103/ul Normal 0.3-0.8 [facility] Comment on above: Performed By: #### C BC #### [facility] [address] [place] [address] Dr. Mendez Corcoran Monocytes/100 WBC (Bld) 10.3 % Normal 1.7-12.0 [facility] Comment on above: Performed By: #### C BC #### [facility] [address] [place] [address] Dr. Mendez Corcoran NEUT # 5.4 103/ul Normal 1.4-6.5 [facility] Comment on above: Performed By: #### C BC #### [facility] [address] [address] [address] Mendez Corcoran Neutrophils/100 WBC (Bld) 70.0 % Normal 43.0-75.0 [facility] Comment on above: Performed By: #### C BC #### [facility] [address] [address] [address] Mendez Corcoran Platelet mean volume (Bld) [Entitic vol] 10.6 fL Normal 9.5-13.5 [facility] Comment on above: Performed By: #### C BC #### [facility] [address] [address] [address] Mendez Corcoran PLT 197 103/ul Normal 150-450 [facility] Comment on above: Performed By: #### C BC #### [facility] [address] [place] [address] Dr. Mendez Corcoran RBC 5.51 106/ul Normal 4.70-6.10 [facility] Comment on above: Performed By: #### C BC #### [facility] [address] [place] [address] Dr. Mendez Corcoran WBC 7.7 103/ul Normal 4.0-11.0 [facility] Comment on above: Performed By: #### C BC #### [facility] [address] [place] [address] Dr. Mendez Corcoran GLYCOHEMOGLOBIN A1Con 2021 ADA RECOMMENDATION SEE BELOW Normal [facility] Comment on above: Result Comment: ADA RECOMMENDED LIMIT 4.0 - 6.0 ADA THERAPEUTIC TARGET < 7.0 ACTION SUGGESTED > 7.0 Performed By: #### A 1C #### [facility] [address] [place] [address] Dr. Mendez Corcoran Glucose [Mass/Vol] 131 mg/dL Normal [facility] Comment on above: Performed By: #### A 1C #### [facility] [address] [place] [address] Dr. Mendez Corcoran HbA1c (Bld) [Mass fraction] 6.2 % Normal 4.5-6.2 [facility] Comment on above: Performed By: #### A 1C #### [facility] [address] [address] [address] Mendez Corcoran LIPID PROFILEon 08-11-2021 CHOL-HDL RATIO NORM SEE BELOW Normal [facility] Comment on above: Result Comment: 3.3 - 4.4 LOW RISK 4.4 - 7.1 AVERAGE RISK 7.1 - 11.0 MODERATE RISK >11.0 HIGH RISK Performed By: #### B MP, LIPID, LIVER #### [facility] [address] [address] [address] Mendez Corcoran Cholesterol [Mass/Vol] 168 mg/dL Normal <=200 [facility] Comment on above: Performed By: #### B MP, LIPID, LIVER #### [facility] [address] [address] [address] Mendez Corcoran Cholesterol in HDL [Mass/Vol] 43 mg/dL Normal 40-60 [facility] Comment on above: Performed By: #### B MP, LIPID, LIVER #### [facility] [address] [address] [address] Mendez Corcoran Cholesterol in LDL [Mass/Vol] 103.6 mg/dL Normal [facility] Comment on above: Performed By: #### B MP, LIPID, LIVER #### [facility] [address] [address] [address] Mendez Corcoran Cholesterol.total/Ch olesterol in HDL [Mass ratio] 3.9 {ratio} Normal [facility] Comment on above: Performed By: #### B MP, LIPID, LIVER #### [facility] [address] [address] [address] Mendez Corcoran HDL NORMAL > or = 60 mg/dl - LO W CARDIOVASCULAR RISK <40 mg/dl - HIGH CARDIOVASCULAR RISK Normal [facility] Comment on above: Performed By: #### B MP, LIPID, LIVER #### [facility] [address] [address] [address] Mendez Corcoran LDL CALC NORMAL SEE BELOW Normal [facility] Comment on above: Result Comment: <100 mg/dl OPTIMAL 100 - 129 mg/dl NEAR OR ABOVE OPTIMAL 130 - 159 mg/dl BORDERLINE HIGH 160 - 189 mg/dl HIGH >190 mg/dl VERY HIGH Performed By: #### B MP, LIPID, LIVER #### [facility] [address] [place] [address] Dr. Mendez Corcoran Triglyceride [Mass/Vol] 107 mg/dL Normal <=150 [facility] Comment on above: Performed By: #### B MP, LIPID, LIVER #### [facility] [address] [place] [address] Dr. Mendez Corcoran VLDL CALC 21.4 mg/dL Normal [facility] Comment on above: Performed By: #### B MP, LIPID, LIVER #### [facility] [address] [place] [address] Dr. Mendez Corcoran LIVER PROFILEon 08-11-2021 Albumin [Mass/Vol] 3.9 g/dL Normal 3.4-5.0 [facility] Comment on above: Performed By: #### B MP, LIPID, LIVER #### [facility] [address] [place] [address] Dr. Mendez Corcoran Albumin/Globulin [Mass ratio] 1.1 {ratio} Normal [facility] Comment on above: Performed By: #### B MP, LIPID, LIVER #### [facility] [address] [place] [address] Dr. Mendez Corcoran ALP [Catalytic activity/Vol] 67 U/L Normal 46-116 [facility] Comment on above: Performed By: #### B MP, LIPID, LIVER #### [facility] [address] [place] [address] Dr. Mendez Corcoran ALT [Catalytic activity/Vol] 40 U/L Normal 16-63 [facility] Comment on above: Performed By: #### B MP, LIPID, LIVER #### [facility] [address] [place] [address] Dr. Mendez Corcoran AST [Catalytic activity/Vol] 18 U/L Normal 15-37 [facility] Comment on above: Performed By: #### B MP, LIPID, LIVER #### [facility] [address] [place] [address] Dr. Mendez Corcoran BILI, CONJUGATED 0.1 mg/dL Normal 0.0-0.2 [facility] Comment on above: Performed By: #### B MP, LIPID, LIVER #### [facility] [address] [place] [address] Dr. Mendez Corcoran Bilirubin [Mass/Vol] 0.6 mg/dL Normal 0.2-1.0 [facility] Comment on above: Performed By: #### B MP, LIPID, LIVER #### [facility] [address] [place] [address] Dr. Mendez Corcoran Globulin (S) [Mass/Vol] 3.4 g/dL Normal [facility] Comment on above: Performed By: #### B MP, LIPID, LIVER #### [facility] [address] [place] [address] Dr. Mendez Corcoran Protein [Mass/Vol] 7.3 g/dL Normal 6.4-8.2 [facility] Comment on above: Performed By: #### B MP, LIPID, LIVER #### [facility] [address] [place] [address] Dr. Mendez Corcoran PROF CHEM 8 (BAS METB)on Anion gap [Moles/Vol] 11.9 mmol/L Normal [facility] Comment on above: Performed By: #### B MP, LIPID, LIVER #### [facility] [address] [place] [address] Dr. Mendez Corcoran Calcium [Mass/Vol] 9.1 mg/dL Normal 8.5-10.1 [facility] Comment on above: Performed By: #### B MP, LIPID, LIVER #### [facility] [address] [place] [address] Dr. Mendez Corcoran Chloride [Moles/Vol] 105 mmol/L Normal 98-107 [facility] Comment on above: Performed By: #### B MP, LIPID, LIVER #### [facility] [address] [place] [address] Dr. Mendez Corcoran CO2 [Moles/Vol] 28.3 mmol/L Normal 21.0-32.0 [facility] Comment on above: Performed By: #### B MP, LIPID, LIVER #### [facility] [address] [address] [address] Mendez Corcoran Creatinine [Mass/Vol] 1.32 mg/dL Critically high 0.70-1.30 [facility] Comment on above: Performed By: #### B MP, LIPID, LIVER #### [facility] [address] [address] [address] Mednez Corcoran EGFR-AF ZIMBABWEAN >60 Normal >=60 [facility] Comment on above: Performed By: #### B MP, LIPID, LIVER #### [facility] [address] [address] [address] Mendez Corcoran EGFR-NON AF ZIMBABWEAN 54 mL/min/1.73m2 Critically low >=60 [facility] Comment on above: Performed By: #### B MP, LIPID, LIVER #### [facility] [address] [address] [address] Mendez Corcoran Glucose [Mass/Vol] 84 mg/dL Normal 74-106 [facility] Comment on above: Performed By: #### B MP, LIPID, LIVER #### [facility] [address] [address] [address] Mendez Corcoran Potassium [Moles/Vol] 4.2 mmol/L Normal 3.5-5.1 [facility] Comment on above: Performed By: #### B MP, LIPID, LIVER #### [facility] [address] [address] [address] Mendez Corcoran Sodium [Moles/Vol] 141 mmol/L Normal 136-145 [facility] Comment on above: Performed By: #### B MP, LIPID, LIVER #### [facility] [address] [address] [address] Mendez Corcoran Urea nitrogen [Mass/Vol] 22.0 mg/dL Critically high 7.0-18.0 [facility] Comment on above: Performed By: #### B MP, LIPID, LIVER #### [facility] [address] [address] [address] Mendez Corcoran Urea nitrogen/Creatinine [Mass ratio] 16.7 mg/mg Normal [facility] Comment on above: Performed By: #### B MP, LIPID, LIVER #### [facility] [address] [place] [address] Dr. Mendez Corcoran VITAMIN D 25 OHon 08-11-2021 VIT D 25-OH 42.8 ng/mL Normal [facility] Comment on above: Performed By: #### V ITAD, PSASC #### [facility] [address] [place] [address] Dr. Mendez Corcoran VIT D RANGES SEE BELOW Normal [facility] Comment on above: Result Comment: <20 ng/mL Vit D deficient 20 - <30 ng/mL Vit D insufficient 30 - 100 ng/mL Vit D sufficient >100 ng/mL Potential Toxicity Performed By: #### V ITAD, PSASC #### [facility] [address] [place] [address] Dr. Mendez Corcoran US SARAH DOP LEG RTon 06-29-19 22 US SARAH DOP LEG RT EXAMINATION: US SARAH DOP LEG RT HISTORY: Thrombophlebitis of deep vein of right lower limb ; right calf pain and redness COMPARISON: No relevant comparison available. FINDINGS: REGION: Right lower extremity THROMBI: Thrombus within the distal femoral vein, popliteal, small saphenous, and posterior tibial veins. COMPRESSIBILITY: Noncompressible segments. FLOW: Normal waveform within calf veins. OTHER: None. IMPRESSION: 1. Deep vein thrombus within the calf veins; deep and superficial. Electronically authenticated by: BILLY YOUSSEF Date: 2021-06-28 10:47 Normal [facility] Vital Signs Date Time Vital Sign Value Performing Clinician Faci lity 07-14-2024 14:45-0400 Body height 167.6 cm Demetrius Galdamez MD Work Phone: [facility] 07-14-2024 14:45-0400 Body mass index (BMI) [Ratio] 27.28 kg/m2 Demetrius Galdamez MD Work Phone: [facility] 07-14-2024 14:45-0400 Body temperature 97.81 [degF] Demetrius Galdamez MD Work Phone: [facility] 07-14-2024 14:45-0400 Body weight 76.66 kg Demetrius Galdamez MD Work Phone: [facility] 07-14-2024 14:45-0400 Diastolic blood pressure 58 mm[Hg] Demetrius Galdamez MD Work Phone: [facility] 07-14-2024 14:45-0400 Heart rate 63 /min Demetrius Galdamez MD Work Phone: [facility] 07-14-2024 14:45-0400 Respiratory rate 22 /min Demetrius Galdamez MD Work Phone: [facility] 07-14-2024 14:45-0400 SaO2% (BldA) [Mass fraction] 96 % Demetrius Galdamez MD Work Phone: [facility] 07-14-2024 14:45-0400 Systolic blood pressure 152 mm[Hg] Demetrius Galdamez MD Work Phone: [facility] 02-07-2024 13:40-0500 Body height 167.6 cm Demetrius Galdamez MD Work Phone: [facility] 02-07-2024 13:40-0500 Body mass index (BMI) [Ratio] 28.08 kg/m2 Demetrius Galdamez MD Work Phone: [facility] 02-07-2024 13:40-0500 Body temperature 97.5 [degF] Demetrius Galdamez MD Work Phone: [facility] 02-07-2024 13:40-0500 Body weight 78.93 kg Demetrius Galdamez MD Work Phone: [facility] 02-07-2024 13:40-0500 Diastolic blood pressure 70 mm[Hg] Demetrius Galdamez MD Work Phone: [facility] 02-07-2024 13:40-0500 Heart rate 61 /min Demetrius Galdamez MD Work Phone: [facility] 02-07-2024 13:40-0500 Respiratory rate 18 /min Demetrius Galdamez MD Work Phone: [facility] 02-07-2024 13:40-0500 SaO2% (BldA) [Mass fraction] 99 % Demetrius Galdamez MD Work Phone: [facility] 02-07-2024 13:40-0500 Systolic blood pressure 140 mm[Hg] Demetrius Galdamez MD Work Phone: [facility] Healthcare Encounters Encounter Date Encounter Type Care Provider Facility Start: 07-16-2024 ambulatory [facility] Start: 07-14-2024 End: 07-14-2024 Office outpatient visit 25 minutes Demetrius Galdamez MD Work Phone: [facility] Comment on above: Type 2 diabetes matt itus with hyperglycemia, without long-term current use of insulin (CMS/HCC) (Primary Dx); Essential hypertension, benign (CMS/HCC); Primary osteoarthritis of right knee; Bilateral leg edema Start: 07-14-2024 End: 07-14-2024 ambulatory DEMETRIUS GALDAMEZ Not Available Start: 07-14-2024 End: 07-14-2024 Bamboo flowsheet Demetrius Galdamez MD Work Phone: [facility] Start: 07-14-2024 End: 07-14-2024 Bamboo flowsheet Demetrius Galdamez MD Work Phone: [facility] Start: 02-12-2024 End: 02-12-2024 ambulatory DEMETRIUS [facility] Start: 02-07-2024 End: 02-07-2024 Bamboo flowsheet Demetrius Galdamez MD Work Phone: [facility] Start: 02-07-2024 End: 02-07-2024 Bamboo flowsheet Demetrius Galdamez MD Work Phone: [facility] Start: 02-07-2024 End: 02-07-2024 Office outpatient visit 25 minutes Demetrius Galdamez MD Work Phone: [facility] Comment on above: Type 2 diabetes matt itus with hyperglycemia, without long-term current use of insulin ([facility]) (Primary Dx); Essential hypertension, benign ([facility]); Chronic embolism and thrombosis of right femoral vein ([facility]); Bilateral leg edema; Primary osteoarthritis of right knee; CKD stage 3a, GFR 45-59 ml/min ([facility]); Dyslipidemia ([facility]); Type 2 diabetes mellitus with other specified complication ([facility]); Hyperlipidemia, unspecified ([facility]); Type 2 diabetes mellitus with diabetic chronic kidney disease ([facility]) Start: 02-07-2024 End: 02-07-2024 ambulatory DEMETRIUS GALDAMEZ Not Available Start: 11-05-2023 End: 11-05-2023 Refill Demetrius Galdamez MD Work Phone: [facility] Comment on above: Acute embolism and t hrombosis of right femoral vein ([facility]); Acute thromboembolism of deep veins of proximal leg ([facility]) Start: 10-24-2023 End: 10-24-2023 Theresa Niño DO Work Phone: [facility] Start: 10-24-2023 End: 10-24-2023 Bammehnaz Niño DO Work Phone: [facility] Start: 10-24-2023 End: 10-24-2023 Office outpatient visit 25 minutes Jr. Uri Niño DO Work Phone: [facility] Comment on above: History of right kne e joint replacement (Primary Dx); Acute pain of right knee Start: 10-24-2023 End: 10-24-2023 ambulatory URI KEMP Not Available Start: 08-20-2023 End: 08-20-2023 Telephone encounter Devika HORTON Work Phone: [facility] General Surgery Start: 08-10-2023 End: 08-10-2023 ambulatory DEMETRIUS GALDAMEZ [facility] Start: 08-06-2023 End: 08-06-2023 ambulatory DEMETRIUS GALDAMEZ Not Available Start: 08-22-2022 End: 02-13-2023 Preprocedural examination done Mansoor Renay DO Work Phone: [facility] Start: 05-27-2022 End: 05-28-[address] URI NIÑO Facility:H1 Start: 02-17-2022 End: 02-18-[address] DEMETRIUS GALDAMEZ Facility:[facility]1 Start: 08-11-2021 End: 08-12-[address] DEMETRIUS GALDAMEZ Facility:[facility]1 Start: 06-28-2021 End: 06-29-[address] DEMETRIUS GALDAMEZ Facility:[facility]1 Procedures Date Procedure Procedure Detail Performing Clinician Start: 10-24-2023 Radiologic examinati on knee 1/2 views Mansoor Uri Giovanni Renay DO Work Phone: Start: 08-11-[address] DEMETRIUS GTZ Comment on above: Performed By: #### V ITAD, PSASC #### [facility] [address] [place] [address] Dr. Mendez Corcoran History of operative procedure on knee History of right knee joint replacement Jr. Uri Davila Renay DO Work Phone: Plan of Treatment Date Care Activity Detail Author Start: 10-21-2025 End: 10-21-2025 Patient encounter procedure 10/21/2025 1:30 PM EDT Office Visit [facility] [address] [place] [id number] Jr. Uri Niño, DO [address] [place] [address] [facility] Start: 02-11-2025 Urine screening for protein Diabetes: Urine Protein Screening [facility] Start: 08-11-2024 Hemoglobin A1c measurement Diabetes: Hemoglobin A1C [facility] Start: 07-14-2024 End: 07-14-2024 Patient encounter procedure 07/14/2024 2:30 PM EDT Office Visit [facility] [address] [place] [address] Demetrius Galdamez MD [address] [place] [address] Arrived [facility] Comment on above: Arrived Start: 07-14-2024 End: 07-14-2025 Hemoglobin A1c/Hemoglobin.total in Blood Hemoglobin A1c Lab Routine Type 2 diabetes mellitus with hyperglycemia, without long-term current use of insulin ([facility]) Expected: 07/14/2024 (Approximate), Expires: 07/14/2025 [facility] Work Phone: Comment on above: Expected: 07/14/2024 (Approximate), Expires: 07/14/2025 Start: 05-27-2024 End: 05-27-2024 Patient encounter procedure 05/27/2024 2:00 PM EDT Office Visit [facility] [address] [place] [address] Demetrius Galdamez MD [address] [place] [address] [facility] Start: 02-10-2024 Hemoglobin A1c measurement Diabetes: Hemoglobin A1C [facility] Start: 02-07-2024 End: 02-06-2025 Hemoglobin A1c/Hemoglobin.total in Blood Hemoglobin A1c Lab Routine Type 2 diabetes mellitus with hyperglycemia, without long-term current use of insulin ([facility]) Expected: 02/07/2024 (Approximate), Expires: 02/06/2025 [facility] Comment on above: Expected: 02/07/2024 (Approximate), Expires: 02/06/2025 Start: 02-07-2024 End: 02-06-2025 Microalbumin/Creatinine panel in random Urine Microalbumin / creatinine, urine ratio Lab Routine Type 2 diabetes mellitus with hyperglycemia, without long-term current use of insulin ([facility]) Expected: 02/07/2024 (Approximate), Expires: 02/06/2025 [facility] Work Phone: Comment on above: Expected: 02/07/2024 (Approximate), Expires: 02/06/2025 Start: 02-07-2024 End: 02-07-2024 Patient encounter procedure [facility] Comment on above: Arrived Start: 11-10-2023 Hemoglobin A1c measurement Diabetes: Hemoglobin A1C [facility] Start: 10-24-2023 End: 10-24-2023 Patient encounter procedure 10/24/2023 1:00 PM EDT Office Visit [facility] [address] [place] [address] Jr. Uri Niño C, DO [address] [place] [address] Arrived [facility] Comment on above: Arrived Start: 10-07-2023 Influenza vaccination [facility] Start: 07-20-2023 Adult BMI Screening Adult BMI Screen ing [facility] Start: 07-19-2023 Tobacco Screening Tobacco Screening [facility] Start: 10-06-2022 COVID-19 Vaccine ( season) COVID-19 Vaccine ( season) [facility] Start: 08-11-2022 Medicare Annual Well ness (AWV) Medicare Annual Wellness (AWV) [facility] Start: 2019 Fall Risk Screening Fall Risk Screen ing [facility] Start: 02-21-2004 Administration of varicella zoster vaccine Zoster (Shingles) Vaccine (1 of 2) [facility] Start: 1973 DTaP,Tdap and Td Vac cines (1 - Tdap) DTaP,Tdap and Td Vaccines (1 - Tdap) [facility] Start: 1973 Pneumococcal Vaccine : 65+ Years (1 of 2 - PCV) Pneumococcal Vaccine: 65+ Years (1 of 2 - PCV) [facility] Start: 1973 Urine screening for protein Diabetes: Urine Protein Screening [facility] Start: 1966 Depression Screening Depression Scre ening [facility] Start: 02-21-1964 Glaucoma screening Diabetes: R etinopathy Screening [facility] Start: 02-21-1960 Pneumococcal Vaccine : 65+ Years (1 of 2 - PCV) Pneumococcal Vaccine: 65+ Years (1 of 2 - PCV) [facility] Start: 1954 Medicare Annual Well ness (AWV) Medicare Annual Wellness (AWV) [facility] Start: 1954 Medicare Annual Well ness Visit Medicare Annual Wellness Visit [facility] Start: 1954 Screening for malign ant neoplasm of colon [facility] Immunizations Immunization Date Immunization Notes Care Provider Elbert mae 11-05-2023 Fluzone High-Dose 0. 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 Stepanic DO Work Phone: [facility] 11-12-2020 Influenza, Seasonal, Quadrivalent, Adjuvanted Jr. Stepanic DO Work Phone: [facility] 12-19-2019 Influenza, High-dose Seasonal, Quadrivalent, Preservative Free Jr. Stepanic DO Work Phone: [facility] 04-18-2019 influenza, high dose seasonal, preservative-free Jr. Stepanic DO Work Phone: [facility] 01-11-2015 influenza, seasonal, injectable, preservative free Jr. Stepanic DO Work Phone: [facility] Payers Date Payer Category Payer Medicare [id number] 2019 Medicare (Managed Care) [employer] [id number] 1959 Unknown [id number] 1954 Unknown [id number] [id number]. 2.593 1954 Unknown [id number] [id number]. 2.593 1954 Unknown [id number] [id number]. 2.593 1954 Unknown [id number] 2.16.840.1.892918.3.579. 2.593 1954 Unknown [id number] [id number]. 2.1259 1954 Unknown [id number] 2.16.840.1.256564.3.579. 2.1259 1954 Unknown [id number] [id number]. 2.1259 1954 Unknown [id number] [id number]. 2.1259 1954 Unknown [id number] [id number]. 2.1259 1954 Unknown [id number] [id number]. 2.1286 1954 Unknown [id number] [id number]. 2.1286 1954 Unknown [id number] [id number]. 2.1286 Social History Date Type Detail Facility Start: 07-06-2016 End: 02-09-2023 Tobacco smoking status OHIS Ex-smoker [facility] Start: 02-05-1974 End: 02-06-2004 History of tobacco use Current smoker [facility] Start: 02-05-1974 End: 02-06-2004 History of tobacco use Cigarette Smoker [facility] Start: 02-09-2023 End: 07-07-2024 Cigarettes smoked current (pack per day) - Reported 1 [facility] Start: 02-09-2023 Tobacco use and exposure Smoke less tobacco non-user [facility] Start: 08-06-2023 End: 07-14-2024 Alcoholic beverage intake Lifetime non-drinker (finding) [facility] Start: 02-12-2023 End: 07-07-2024 Humiliation, Afraid, Rape, and Kick questionnaire [HARK] [facility] Within the last year , have you been afraid of your partner or ex-partner? No [facility] Attends Spiritism Services Not on file [facility] Do you belong to any clubs or organizations such as evangelical groups, unions, fraternal or athletic groups, or school groups? Yes [facility] Are you now , , , , never or living with a partner? [facility] How often to you hav e a drink containing alcohol? Never [facility] How hard is it for y ou to pay for the very basics like food, housing, medical care, and heating Not very hard [facility] Do you feel stress - tense, restless, nervous, or anxious, or unable to sleep at night because your mind is troubled all the time - these days [OSQ] Not at all [facility] (I/We) worried wheth er (my/our) food would run out before (I/we) got money to buy more. Never true [facility] Start: 1955 Sex assigned at Not on file [employer] [facility] Start: 07-19-2022 Alcoholic beverage intake Ex-drinker (finding) [facility] Medical Equipment Procedure Code Equipment Code Equipment Origin al Text Equipment Identifier Dates Cement Bn Bio 40 gm Rpl [id number] - Sna - [id number] Start: 07-18-2022 Insert Artc 5-6 E-F 10mm Kn Fx Brng Prlng Nxgn Lpsflx Strl Rpl [id number] + [id number] - Sna - [id number] Start: 07-18-2022 Component Fem E Kn Rt Cmnt Nxgn Lpsflx Opt Zml Prlng Strl Rpl [id number] - Sna - [id number] Start: 07-18-2022 Component Ptlr 3 5mm Persona Alply Kn Strl Lf - Sna - [id number] Start: 07-18-2022 Plate Tib 74x50m m Nxgn Kn Cmnt Mdlr Stm Prect 6 Tiv Pmma Rpl [id number] + [id number] - Sna - [id number] Start: 07-18-2022 Goals Date Patient Goal Desired Activity /State Personal health goal Comment on above: Formatting of this n ote might be different from the original. Evaluation of progress towards goal: Home with family support and [facility] History of Present illness Narrative 07-14-2024 Demetrius Galdamez MD - 07/14/2024 3:11 PM EDBlake Galdamez MD - 07/14/2024 3:11 PM EDBlake Galdamez MD - 07/14/2024 3:11 PM EDBlake Galdamez MD - 07/14/2024 3:11 PM EDT Note Date & Type Note Facility 07-14-2024 History of Presen t illness Narrative Associated Problem(s): Type 2 diabetes mellitus with hyperglycemia (CMS/HCC) Not checking BS and due for A1C. Stick to ADA diet and limit carbs. Associated Problem(s): Primary osteoarthritis of right knee Doing well after surgery and follow up with ortho. Continue ROM exercises. Associated Problem(s): Essential hypertension, benign (CMS/HCC) BP controlled and monitor PRN. Associated Problem(s): Bilateral leg edema Edema stable and continue lasix PRN. Elevate legs throughout the day. Images from the original note were not included. Subjective Patient ID: Dheeraj Strong is a 69 y.o. male who presents for Follow-up (6m). Follow up DM, HTN, OA knee, edema, and DVT. Patient feels well today. Not checking BS away from office. Tries to stick to ADA diet and limit carbs. Denies signs of elevated BS such as polyuria, polyphagia or polydipsia. Checking BP PRN and typically controlled. BP normal today. Taking medication daily and tolerating without side effects. OA knee improved after replacement. Mild pain and able to walk and stay active without pain. Still performing PT exercises and riding exercise bike. Following with ortho and doing well. Edema controlled with medication. Mild swelling at end of day and if on feet a lot. Edema improved in am and with elevation. Review of Systems Constitutional: Negative for fatigue. Respiratory: Negative for cough, shortness of breath and wheezing. Cardiovascular: Negative for chest pain and palpitations. Gastrointestinal: Negative for abdominal pain, diarrhea, nausea and vomiting. Genitourinary: Negative for dysuria. Objective Physical Exam Constitutional: General: He is not in acute distress. Appearance: Normal appearance. HENT: Head: Normocephalic. Right Ear: Tympanic membrane and ear canal normal. Left Ear: Tympanic membrane and ear canal normal. Eyes: Extraocular Movements: Extraocular movements intact. Pupils: Pupils are equal, round, and reactive to light. Cardiovascular: Rate and Rhythm: Normal rate and regular rhythm. Heart sounds: No murmur heard. No friction rub. No gallop. Pulmonary: Breath sounds: Normal breath sounds. No wheezing, rhonchi or rales. Abdominal: General: Bowel sounds are normal. There is no distension. Palpations: Abdomen is soft. Tenderness: There is no abdominal tenderness. There is no guarding or rebound. Musculoskeletal: Left lower leg: No edema. Neurological: Mental Status: He is alert. Assessment/Plan Problem List Items Addressed This Visit Primary osteoarthritis of right knee Doing well after surgery and follow up with ortho. Continue ROM exercises. Essential hypertension, benign (CMS/HCC) BP controlled and monitor PRN. Type 2 diabetes mellitus with hyperglycemia (CMS/HCC) - Primary Not checking BS and due for A1C. Stick to ADA diet and limit carbs. Relevant Orders Hemoglobin A1c Bilateral leg edema Edema stable and continue lasix PRN. Elevate legs throughout the day. documented in this encounter [facility] History of Present illness Narrative 02-07-2024 Demetrius Galdamez MD - 02/07/2024 2:16 PM Kirby Galdamez MD - 02/07/2024 2:16 PM Kirby Galdamez MD - 02/07/2024 2:15 PM Kirby Galdamez MD - 02/07/2024 2:15 PM EST Note Date & Type Note Facility 02-07-2024 History of Presen t illness Narrative Associated Problem(s): Dyslipidemia (CMS/HCC) Continue pravachol Associated Problem(s): CKD stage 3a, GFR 45-59 ml/min (CMS/HCC) Renal function stable. Associated Problem(s): Type 2 diabetes mellitus with hyperglycemia (CMS/HCC) Not checking BS and due for A1C. Stick to ADA diet and limit carbs. Associated Problem(s): Primary osteoarthritis of right knee Doing well after surgery and follow up with ortho. Continue ROM exercises. Associated Problem(s): Essential hypertension, benign (CMS/HCC) BP controlled and monitor PRN. Associated Problem(s): Chronic embolism and thrombosis of right femoral vein (CMS/HCC) Stopped eliquis due to cost. Prior provoked DVT but chronic clot persists. Discussed options including vascular referral. Wants to stay off anticoagulation and will monitor. Associated Problem(s): Bilateral leg edema Edema stable and continue lasix PRN. Elevate legs throughout the day. Images from the original note were not included. Subjective Patient ID: Dheeraj Strong is a 68 y.o. male who presents for Follow-up (6m). Follow up DM, HTN, OA knee, edema, and DVT. Patient feels well today. Not checking BS away from office. Tries to stick to ADA diet and limit carbs. Denies signs of elevated BS such as polyuria, polyphagia or polydipsia. Checking BP PRN and typically controlled. BP normal today. Taking medication daily and tolerating without side effects. OA knee improved after replacement. Mild pain and able to walk and stay active without pain. Still decreased ROM but performing PT exercises and riding exercise bike. Following with ortho and doing well. Edema controlled with medication. Mild swelling at end of day and if on feet a lot. Edema improved in am and with elevation. Stopped eliquis due to cost. No pain or swelling in leg. Was on Eliquis for 3 years. Review of Systems Constitutional: Negative for fatigue. Respiratory: Negative for cough, shortness of breath and wheezing. Cardiovascular: Negative for chest pain and palpitations. Gastrointestinal: Negative for abdominal pain, diarrhea, nausea and vomiting. Genitourinary: Negative for dysuria. Objective Physical Exam Constitutional: General: He is not in acute distress. Appearance: Normal appearance. HENT: Head: Normocephalic. Right Ear: Tympanic membrane and ear canal normal. Left Ear: Tympanic membrane and ear canal normal. Eyes: Extraocular Movements: Extraocular movements intact. Pupils: Pupils are equal, round, and reactive to light. Cardiovascular: Rate and Rhythm: Normal rate and regular rhythm. Heart sounds: No murmur heard. No friction rub. No gallop. Pulmonary: Breath sounds: Normal breath sounds. No wheezing, rhonchi or rales. Abdominal: General: Bowel sounds are normal. There is no distension. Palpations: Abdomen is soft. Tenderness: There is no abdominal tenderness. There is no guarding or rebound. Musculoskeletal: Left lower leg: No edema. Neurological: Mental Status: He is alert. Assessment/Plan Problem List Items Addressed This Visit Primary osteoarthritis of right knee Doing well after surgery and follow up with ortho. Continue ROM exercises. Essential hypertension, benign (CMS/HCC) BP controlled and monitor PRN. Chronic embolism and thrombosis of right femoral vein (CMS/HCC) Stopped eliquis due to cost. Prior provoked DVT but chronic clot persists. Discussed options including vascular referral. Wants to stay off anticoagulation and will monitor. Type 2 diabetes mellitus with hyperglycemia (CMS/HCC) - Primary Not checking BS and due for A1C. Stick to ADA diet and limit carbs. Relevant Orders Microalbumin / creatinine, urine ratio Hemoglobin A1c Bilateral leg edema Edema stable and continue lasix PRN. Elevate legs throughout the day. documented in this encounter [facility] History of Present illness Narrative 10-24-2023 Jr. Uri Niño, - 10/24/2023 1:00 PM EDT Note Date & Type Note Facility 10-24-2023 History of Presen t illness Narrative Images from the original note were not included. HISTORY OF PRESENT ILLNESS: EST PT Dheeraj Strong is an 68 y.o. @ male. (EST PT) RECHECK (R) KNEE - 6 MONTH CHECK S/P (R) KNEE KARYN 09/29/22 S/P (R) TKA 07/18/22 (~15 MONTHS) XRAYS DONE TODAY, 10/24/23 IN EPIC NO BONE SCAN S/P MDP 12/27/22 S/P PREDNISONE 11/24/22 FINISHED PHYSICAL THERAPY @ [facility] SH[facility]AN ; POST-OP KARYN NO PAIN MGMT DENIES ANY CURRENT DISCOMFORT ; SEEM HIS MOBILITY SEEMS TO BE GETTING BETTER - ABLE TO GET ON / OFF HIS MOWER / MOTORCYCLE. SOME STIFFNESS IN THE AM. DENIES ANY INSTABILITY / WEAKNESS. DENIES ANY SWELLING. TAKING TYLENOL DAILY - AM. 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 TAKES ELIQUIS ; H/O DVT & STROKE ALLERGIES: No Known Allergies HOME MEDICATIONS: Current Outpatient Medications Medication Instructions atenolol (TENORMIN) 25 mg, Oral, Daily cholecalciferol (Vitamin D-3) 25 MCG (1000 UT) capsule 1 capsule, Oral, Daily Eliquis 5 mg, Oral, 2 times daily furosemide (LASIX) 40 mg, Oral, Daily lisinopril 20 mg, Oral, Daily omeprazole (PRILOSEC) 20 mg, Oral, Daily pravastatin (PRAVACHOL) 40 mg, Oral, Nightly PHYSICAL EXAM: Knee Musculoskeletal Exam Gait Gait is normal. Inspection Leg length disparity: no discrepancy Right Erythema: none Effusion: none Edema: none Ecchymosis: none Deformity: none Alignment: normal Previous incision: anterolateral Incision: well-healed Palpation Right Right knee palpation is unremarkable. Increased warmth: none Masses: none Tenderness: none Range of Motion Right Right knee range of motion is normal. Active extension: 0 Active flexion: 105 Strength Right Right knee strength is normal. Extension: 5/5. Flexion: 5/5. Instability Right Instability signs: none - stable Varus stress grade: normal Valgus stress grade: normal Neurovascular Right Right knee neurovascular exam is normal. Pulses - PT: normal Posterior tibial: 2+ Capillary refill: warm and well-perfused Special Signs Right Right knee special signs are normal. Patellar apprehension: none Vitals: There is no height or weight on file to calculate BMI. Tobacco Use: Medium Risk (10/24/2023) Patient History Smoking Tobacco Use: Former Smokeless Tobacco Use: Never Passive Exposure: Not on file Alcohol Use: Not At Risk (02/12/2023) AUDIT-C Frequency of Alcohol Consumption: Never Average Number of Drinks: Patient does not drink Frequency of Binge Drinking: Never IMAGING: XR knee 1 or 2 views right Imaging Result: AP and lateral of right knee showed surgical position and alignment of prosthetic components without evidence of loosening or wear to the femoral, tibial, or patellar components. The alignment appeared to be anatomic. There was no evidence of accelerated or asymmetric wear to the patellar button or tibial tray. There was no evidence of fracture and/or dislocation. Impression: Unremarkable right total knee arthroplasty. Procedures Orders Placed This Encounter Procedures XR knee 1 or 2 views right Order Specific Question: Reason for exam: Answer: PAIN ASSESSMENT: ICD-10-CM 1. History of right knee joint replacement Z96.651 2. Acute pain of right knee M25.561 XR knee 1 or 2 views right PLAN: We have answered all the patients questions and explained the patients condition, decision making and plan including the risks and benefits associated with said plan in layman''s terms in a language the patient could understand easily. If patient''s symptoms significantly worsen and they cannot get a hold of us or their family physician, we have recommended that the patient proceed to the nearest emergency department (room). Dr. Niño obtained history and examined the patient, I am acting as scribe for Dr. Niño/su, PLAN: We have discussed (R) knee xrays. Patient is pleased with his right knee progress as he admits his right knee is better now than it was prior to sx. He has good strength of his right knee with examination today. We have discussed his HEP and restrictions and will see him back in 2 years to reassess his right knee with repeat xrays. Uri Niño D.O. documented in this encounter [facility] Note 08-20-2023 Telephone Encounter - Karishma Spears - 08/20/2023 2:08 PM EDT Note Date & Type Note Facility 08-20-2023 Miscellaneous Notes Formattin g of this note is different from the original. Called Dheeraj regarding the screening colonoscopy referral that our office received from Dr Galdamez, left message on voicemail to call the office back to schedule an appointment. Also called on: 08/15 LM SE 7/3 PT TO CALL BK SE documented in this encounter [facility] Telephone encounter Note 08-20-2023 Telephone Encounter - Karishma Spears - 08/20/2023 2:08 PM EDT Note Date & Type Note Facility 08-20-2023 Telephone encount er Note Called Dheeraj regarding the screening colonoscopy referral that our office received from Dr Galdamez, left message on voicemail to call the office back to schedule an appointment. Also called on: 08/15 LM SE 7/3 PT TO CALL BK SE [facility] Evaluation note Note Date & Type Note Facility Evaluation note Diagnosis History of right knee joint replacement- Primary Acute pain of right knee documented in this encounter [facility] Evaluation note Note Date & Type Note Facility Evaluation note Diagnosis Acute embolism and thrombosis of right femoral vein (CMS/HCC) Acute thromboembolism of deep veins of proximal leg (CMS/HCC) Acute venous embolism and thrombosis of deep vessels of proximal lower extremity documented in this encounter [facility] Evaluation note Note Date & Type Note Facility Evaluation note Diagnosis Essential hypertension, benign (CMS/HCC)- Primary Essential hypertension, benign Primary osteoarthritis of right knee Bilateral leg edema Edema Gastroesophageal reflux disease without esophagitis Esophageal reflux Chronic embolism and thrombosis of right femoral vein (CMS/HCC) Essential hypertension, benign (CMS/HCC)- Primary Essential hypertension, benign Primary osteoarthritis of right knee Bilateral leg edema Edema Chronic embolism and thrombosis of right femoral vein (CMS/HCC) Gastroesophageal reflux disease without esophagitis Esophageal reflux Prediabetes Other abnormal glucose Vitamin D deficiency Dyslipidemia ([facility]/HCC) Other and unspecified hyperlipidemia Encounter for long-term (current) use of medications Encounter for long-term (current) use of other medications Screening PSA (prostate specific antigen) Special screening for malignant neoplasm of prostate Colon cancer screening Special screening for malignant neoplasms, colon Type 2 diabetes mellitus with hyperglycemia, without long-term current use of insulin ([facility]/HCC)- Primary Essential hypertension, benign ([facility]/HCC) Essential hypertension, benign Chronic embolism and thrombosis of right femoral vein (CMS/HCC) Bilateral leg edema Edema Primary osteoarthritis of right knee CKD stage 3a, GFR 45-59 ml/min ([facility]/HCC) Dyslipidemia ([facility]/HCC) Other and unspecified hyperlipidemia Type 2 diabetes mellitus with other specified complication ([facility]/HCC) Hyperlipidemia, unspecified ([facility]) Type 2 diabetes mellitus with diabetic chronic kidney disease ([facility]/HCC) documented in this encounter [facility] Healthcare Evaluation note Note Date & Type Note Facility Evaluation note Diagnosis Essential hypertension, benign (CMS/HCC)- Primary Essential hypertension, benign Primary osteoarthritis of right knee Bilateral leg edema Edema Gastroesophageal reflux disease without esophagitis Esophageal reflux Chronic embolism and thrombosis of right femoral vein (CMS/HCC) Essential hypertension, benign (CMS/HCC)- Primary Essential hypertension, benign Primary osteoarthritis of right knee Bilateral leg edema Edema Chronic embolism and thrombosis of right femoral vein (CMS/HCC) Gastroesophageal reflux disease without esophagitis Esophageal reflux Prediabetes Other abnormal glucose Vitamin D deficiency Dyslipidemia ([facility]/HCC) Other and unspecified hyperlipidemia Encounter for long-term (current) use of medications Encounter for long-term (current) use of other medications Screening PSA (prostate specific antigen) Special screening for malignant neoplasm of prostate Colon cancer screening Special screening for malignant neoplasms, colon Type 2 diabetes mellitus with hyperglycemia, without long-term current use of insulin (CMS/HCC)- Primary Essential hypertension, benign (CMS/HCC) Essential hypertension, benign Chronic embolism and thrombosis of right femoral vein (CMS/HCC) Bilateral leg edema Edema Primary osteoarthritis of right knee CKD stage 3a, GFR 45-59 ml/min (CMS/HCC) Dyslipidemia (CMS/HCC) Other and unspecified hyperlipidemia Type 2 diabetes mellitus with other specified complication Hyperlipidemia, unspecified (CMS/HCC) Type 2 diabetes mellitus with diabetic chronic kidney disease (CMS/HCC) Type 2 diabetes mellitus with hyperglycemia, without long-term current use of insulin (CMS/HCC)- Primary Essential hypertension, benign (CMS/HCC) Essential hypertension, benign Primary osteoarthritis of right knee Bilateral leg edema Edema documented in this encounter [facility] Healthcare Instructions Note Date & Type Note Facility Instructions Not on filedocumented in this en counter [facility] Summary Purpose Family History No Family History Records FoundNo Family History Records FoundNo Family History Records Found Advance Directives No Advanced Directives Records Found Date Activated Date Inactivated Comments 07/18/2022 7:03 AM 07/19/2022 2:51 PM Additional Source Comments (unrecognized sect ion and content) No Status Records FoundNo Status Records FoundNo Status Records Found INFORMATION SOURCE (unrecogn ized section and content) DATE CREATED AUTHOR [facility]03[facility]2022 [facility] DATE CREATED AUTHOR AUTHOR'S ORGANIZ ATION 07/15/2024 [facility] EPIC DATE CREATED AUTHOR AUTHOR'S ORGANIZ ATION 07/18/2024 [facility] Care Teams (unrecognized sec tion and content) Scoring Machine Operator Relationship Specialty Start Date End Date Demetrius Galdamez MD [address] [place] [address] PCP - General Family Medicine 04/25/23 Scoring Machine Operator Relationship Specialty Start Date End Date Demetrius Galdamez MD [address] [place] [address] PCP - General Family Medicine 04/25/23 Scoring Machine Operator Relationship Specialty Start Date End Date Demetrius Galdamez MD [address] [place] [address] PCP - General Family Medicine 04/25/23 Demetrius Galdamez MD [address] [place] [address] PCP - Dwayne KHAN 10/07/23 Scoring Machine Operator Relationship Specialty Start Date End Date Demetrius Galdamez MD [address] [place] [address] PCP - General Family Medicine 04/25/23 Demetrius Galdamez MD [address] [place] [address] PCP Mike Rice MA 10/07/23 Scoring Machine Operator Relationship Specialty Start Date End Date Demetrius Galdamez MD [address] [place] [address] PCP - General 07/06/16 Scoring Machine Operator Relationship Specialty Start Date End Date Demetrius Galdamez MD [address] [place] [address] PCP - General Family Medicine 04/25/23 Demetrius Galdamez MD [address] [place] [address] PCP Mike Rice MA 10/07/23 Scoring Machine Operator Relationship Specialty Start Date End Date Demetrius Galdamez MD [address] [place] [phone] PCP - General Family Medicine 04/25/23 Demetrius Galdamez MD [address] [place] [phone] PCP - Dwayne KHAN 10/07/23 Reason for Visit (unrecogniz ed section and content) Reason Comments Pain Reason Onset Date Comments Med Refill 11/05/2023 Reason Comments Follow-up 6m FOR RECORDS PERTAINING TO PATIENTS WHO ARE OR HAVE BEEN ENROLLED IN A CHEMICAL DEPENDENCY/SUBSTANCEABUSE PROGRAM, SOME INFORMATION MAY BE OMITTED. This clinical summary was aggregated from multiple sources. Caution should be exercised in using it in the provision of clinical care. This summary normalizes information from multiple sources, and as a consequence, information in this document may materially change the coding, format and clinical context of patient data. In addition, data may be omitted in some cases. CLINICAL DECISIONS SHOULD BE BASED ON THE PRIMARY CLINICAL RECORDS. [employer] [facility]. provides no warranty or guarantee of the accuracy or completeness of information in this document.
--- NOTE | 2024-09-19 10:31 | ED.GENADUL1 ---
HPI HPI - General Adult General Chief complaint: Extremity Problem, Nontraumatic Stated complaint: L CALF PAIN Time Seen by Provider: 09/19/24 10:15 Source: patient Mode of arrival: walk-in Limitations: no limitations History of Present Illness HPI narrative: 69-year-old male presents for swelling in his left leg. He is complaining of swelling to the left calf area going up to the area behind his knee and he has had that for several days. No injury. He has a remote history of DVT and was taken off of his Eliquis 6 or 8 months ago. No chest pain or shortness of breath. No numbness in the foot. Related Data Home Medications ?Medication ?Instructions ?Recorded ?Confirmed atenolol 25 mg tablet 25 mg PO DAILY 09/19/24 09/19/24 cholecalciferol (vitamin D3) 25 1,000 unit PO DAILY 09/19/24 09/19/24 mcg (1,000 unit) capsule furosemide 40 mg tablet 40 mg PO DAILY 09/19/24 09/19/24 lisinopril 20 mg tablet 20 mg PO DAILY 09/19/24 09/19/24 omeprazole 20 mg capsule,delayed 20 mg PO DAILY 09/19/24 09/19/24 release pravastatin 40 mg tablet 40 mg PO BEDTIME 09/19/24 09/19/24 Previous Rx's ?Medication ?Instructions ?Recorded rivaroxaban 15 mg (42)-20 mg (9) See Rx Instructions PO .COMPLEX 09/19/24 tablets in a starter pack (Xarelto #51 ea DVT-PE Treatment 30-Day Starter) Allergies Allergy/AdvReac Type Severity Reaction Status Date / Time No Known Drug Allergies Allergy Verified 09/19/24 10:23 Opioid HPI Opioid Management Most Recent Opioid Data: Last Pain Scale 1 Today, 10:27 Review of Systems ROS Narrative A ten point review of systems is negative except as noted above. PFSH PFSH Social History Little interest or pleasure in doing things: not at all Feeling down, depressed, or hopeless: not at all Exam Narrative Exam Narrative: Nurses note and vital signs reviewed and patient is not hypoxic. General: The patient appears well and in no apparent distress. Patient is resting comfortably on cart. Skin: Warm, dry, no pallor noted. There is no rash noted. Head: Normocephalic, atraumatic Eye: Normal conjunctiva, no drainage Ears, Nose, Mouth, and Throat: oral mucosa is moist. Nares patent. Cardiovascular: Regular Rate and Rhythm Respiratory: Patient is in no distress, no accessory muscle use, lungs are clear to auscultation, no wheezing, rales or rhonchi Back: non-tender GI: Soft and nontender Musculoskeletal: The left calf is swollen compared to the contralateral. Dorsalis pedis pulse 2+ capillary refill is brisk. Neurological: A&O, normal speech Psychiatric: Cooperative Constitutional Vital Signs, click to edit/add: Last Vital Signs Temp 98.7 F 09/19/24 10:19 Pulse 66 09/19/24 10:19 Resp 18 09/19/24 10:19 BP 165/94 H 09/19/24 10:19 Pulse Ox 98 09/19/24 10:19 O2 Del Method Room Air 09/19/24 10:19 Course Vital Signs Vital signs: Vital Signs Temperature 98.7 F 09/19/24 10:19 Pulse Rate 66 09/19/24 10:19 Respiratory Rate 18 09/19/24 10:19 Blood Pressure 165/94 H 09/19/24 10:19 Pulse Oximetry 98 09/19/24 10:19 Oxygen Delivery Method Room Air 09/19/24 10:19 Temperature 98.7 F 09/19/24 10:19 Pulse Rate 66 09/19/24 10:19 Respiratory Rate 18 09/19/24 10:19 Blood Pressure 165/94 H 09/19/24 10:19 Pulse Oximetry 98 09/19/24 10:19 Oxygen Delivery Method Room Air 09/19/24 10:19 Medical Decision Making MDM Narrative Medical decision making narrative: Extensive DVT is identified but it does not involve the common femoral vein. Case is discussed with Dr. Al, on-call for vascular surgery from [facility]. She does not feel that he needs thrombolytics and recommends discharge home on oral anticoagulation and follow-up with Dr. Reynolds. I have no suspicion of PE. Treatment diagnosis and follow-up were discussed with the patient thoroughly. Differential Diagnosis Differential Diagnosis: DVT, superficial thrombophlebitis Imaging Data Left leg Doppler: Radiologist's impression: Findings consistent with underlying and deep disease throughout the left lower extremity including the mid to distal left superficial femoral vein, left popliteal vein, left peroneal vein, and left posterior tibial vein. Discharge Plan Discharge Chief Complaint: Extremity Problem, Nontraumatic Clinical Impression: Deep vein thrombosis of lower extremity Patient Disposition: Home, Self-Care Time of Disposition Decision: 11:36 Condition: Good Mode of Transportation: Private Vehicle Prescriptions / Home Meds: New Xarelto DVT-PE Treat 30d Start 15 mg (42)- 20 mg (9) tablets,dose pack See Rx Instructions .ROUTE .COMPLEX Qty: 51 0RF Rx Instructions: take one-15 mg tablet twice daily for 21 days, then one-20 mg tablet once daily; must take with meal/food No Action atenolol 25 mg tablet 25 mg PO DAILY cholecalciferol (vitamin D3) 25 mcg (1,000 unit) capsule 1,000 unit PO DAILY furosemide 40 mg tablet 40 mg PO DAILY lisinopril 20 mg tablet 20 mg PO DAILY omeprazole 20 mg capsule,delayed release(DR/EC) 20 mg PO DAILY pravastatin 40 mg tablet 40 mg PO BEDTIME Print Language: [place]al[place] Instructions: Deep Vein Thrombosis (ED) Additional Instructions: Use compression stockings and elevate legs. Follow-up promptly with Dr. Reynolds Referrals: Demetrius Zhou MD [Primary Care Provider, Family Practice] - 1 week Luli Reynolds MD [Physician, Vascular Surgery] - 1 week
== END 2024-09-19 12:02 | disposition home or self-care (01) ==
PROVIDERS: Emergency Provider Emergency Medicine; PCP Family Medicine
DX: R60.0 Localized edema (principal); I82.492 Acute embolism and thrombosis of other specified deep vein of left lower extremity
CPT/HCPCS: 93971; 99284